=== PATIENT | female | born 1970 | race Caucasian/White ===

== ENCOUNTER 2021-01-08 00:25 | Emergency (ER) | payer OTHER, SELFPAY ==
[2021-01-08 00:28] VITALS: BP 154/99; PULSE 71; RESP 20; TEMP 36.3; O2SAT 99
--- NOTE | 2021-01-08 00:31 | ED.EXTPRO ---
HPI - Extremity Problem General Chief complaint: Extremity Problem,Nontraumatic Stated complaint: L arm pain Time Seen by Provider: 01/08/21 00:28 History of Present Illness HPI Narrative: Dull left forearm pain radiating to the left elbow for more than 1 week. Seen by PCP and told that it was likely muscle spasms. She was prescibed flexeril, which has not been helping. She came in tonight because she is unable to sleep due to the pain. Nothing makes it any better or worse. She does report tingling in the finger tips. No weakness. No rash. Related Data Home Medications Medication Instructions Recorded Confirmed cyclobenzaprine mg 01/08/21 Allergies Allergy/AdvReac Type Severity Reaction Status Date / Time No Known Allergies Allergy Verified 01/08/21 01:08 Review of Systems Review of Systems: All systems reviewed & are unremarkable except as noted in HPI and below Constitutional: Constitutional: Denies chills, Denies fever(s) and Denies weakness Cardiovascular: Cardiovascular: Denies chest pain Respiratory: Respiratory: Denies dyspnea Musculoskeletal: Musculoskeletal: Denies back pain [facility] Past Medical History Medical History (Updated 01/20/21 @ 17:39 by Jacob Gill MD) HTN (hypertension) Social History Social History (Updated 01/20/21 @ 17:39 by Jacob Gill MD) Smoking status: Never smoker Substance use: never Exam Const: General: healthy appearing, no acute distress and alert Orientation/consciousness: patient oriented x3 HENMT: Head: normal to inspection Resp: Effort & Inspection: normal respiratory effort Auscultation: clear to auscultation bilaterally Cardio: Rate: regular rate Rhythm: regular rhythm Skin: General skin exam: normal color Rashes: no rashes Wounds: no wounds Neuro: General: patient oriented x3, moves all extremities, no focal motor deficits and CN's II-XI intact bilaterally Speech: normal speech Gait exam (Neuro): Normal gait present Other: 5/5 strength throughout Extrem: Other: Pain with wrist movement against resistance. Otherwise normal exam Course Vital Signs Vital signs: Vital Signs Temperature 36.3 C L 01/08/21 00:28 Pulse Rate 71 01/08/21 00:28 Respiratory Rate 20 01/08/21 00:28 Blood Pressure 154/99 H 01/08/21 00:28 Pulse Oximetry 99 01/08/21 00:28 Temperature 36.3 C L 01/08/21 00:28 Pulse Rate 71 01/08/21 00:28 Respiratory Rate 20 01/08/21 00:28 Blood Pressure 154/99 H 01/08/21 00:28 Pulse Oximetry 99 01/08/21 00:28 MDM - Extremity (Nontraumatic) MDM Narrative Medical decision making narrative: Could be tendinitis, neuropathy, muscle strain. Shingles would have been a possibility but there should be a rash by now. Medical Records Attestation: I reviewed the patient's medical records. Discharge Plan Discharge Clinical Impression: Left forearm pain Patient Disposition: Home, Self-Care Condition: Stable Instructions: Arm Pain (ED) Prescriptions: New methylprednisolone [Medrol (Giles)] 4 mg tablets,dose pack See Rx Instructions .ROUTE .COMPLEX Qty: 21 RF: 0 No Action cyclobenzaprine 5 mg tablet RF: 0 Follow-up/Referrals: [facility], [Primary Care Provider] -
[2021-01-08] MEDS: KETOROLAC (*BKC) 60 MG/2 ML VIAL IM (01:07)
[2021-01-08] MEDS: DEXAMETHASONE SOD PHOS INJ 4 MG/ML VIAL 10 MG IM (01:07)
== END 2021-01-08 02:20 | disposition home or self-care (01) ==
PROVIDERS: Emergency Provider Emergency Medicine
DX: M79.632 Pain in left forearm (principal); I10 Essential (primary) hypertension
CPT/HCPCS: 96372; 99284; J1100; J1885

== ENCOUNTER 2021-03-20 07:31 | Emergency (ER) | payer OTHER, SELFPAY ==
--- NOTE | ~2021-03-20 | XR_ITS ---
EXAMINATION: XR hand LT min 3V EXAM DATE: 03/20/2021 08:24 INDICATION: pain/swelling chronic for one month with acute onset. TECHNIQUE: Left hand frontal, lateral and oblique projections obtained and reviewed. There is no donell or study for comparison. FINDINGS: Left metacarpal bones are unremarkable. There are no bony erosions identified. There are no acute fractures or dislocations identified. There is no subcutaneous gas. The soft tissue is un remarkable. There are no radiopaque foreign bodies. IMPRESSION: No acute osseous findings. Reviewed, dictated and finalized at location A. IMPRESSION: No acute osseous findings.
[2021-03-20 07:32] VITALS: BP 143/93; PULSE 90; RESP 20; TEMP 36.3; O2SAT 100
--- NOTE | 2021-03-20 08:17 | ED.GENADULT ---
HPI - General Adult General Chief complaint: Extremity Injury, Upper Stated complaint: l arm pain Time Seen by Provider: 03/20/21 07:46 History of Present Illness HPI narrative: Patient is a 50-year-old female who presents ER with left arm pain. Patient reports she has history of cervical disc issues that she recently completed physical therapy for. They typically cause her to have muscle spasms and radicular pain down her left arm. Patient was feeling better yesterday and opted to perform some gardening. Today when she woke up she was having recurrence of her pain. A lot of her pain is in her hands and forearm. She has difficulty extending her fingers out due to pain. She also has pain and tightness and the trapezius muscle on the left side. She took 600 mg of Motrin this morning without relief. She reports typically she has been on steroids and muscle relaxers for this in the past. No chest pain or chest pressure. Patient reports some mild swelling to her left hand that she reports is atypical. She also reports that she has not been diagnosed with any inflammatory arthritis such as rheumatoid arthritis or psoriatic arthritis. Patient has some paresthesia/tingling in her hands. Related Data Allergies Allergy/AdvReac Type Severity Reaction Status Date / Time No Known Allergies Allergy Verified 03/20/21 07:39 Review of Systems Constitutional: Constitutional: Denies chills, Denies fever(s) and Denies weakness Cardiovascular: Cardiovascular: Denies chest pain and Denies radiating jaw, neck or arm pain Respiratory: Respiratory: Denies cough and Denies dyspnea Musculoskeletal: Musculoskeletal: Reports arthralgias (Fingers left hand), Reports joint swelling (Fingers left hand) and Reports muscle cramps Neurologic: Denies focal weakness, Denies numbness and Reports paresthesias PMFSH Past Medical History Medical History (Updated 03/20/21 @ 09:31 by Sumanth Whitehead MD) HTN (hypertension) Surgical History Surgical History (Updated 03/20/21 @ 08:20 by Sumanth Whitehead MD) History of section Social History Social History (Updated 01/20/21 @ 17:39 by Jacob Gill MD) Smoking status: Never smoker Substance use: never Gender identity (if verbalized by the patient): Female Exam Narrative: Exam Narrative: GENERAL: Well-appearing, well-nourished, and in no acute distress. HEAD: Normocephalic, atraumatic. NECK: Supple. Tender palpation with spasm over left trapezius musculature. CHEST: Clear to auscultation. No respiratory distress. HEART: Regular rate and rhythm. Normal peripheral pulses. EXTREMITIES: Normal range of motion of the shoulder/elbow/wrist and the left upper extremity. Normal flexion of the fingers but pain with extension the fingers. Digits are edematous but not erythematous. Negative carpal tunnel compression test. No reproducible tenderness within the forearm. SKIN: Warm, dry, no rash. NEURO: No focal deficits. Alert and oriented x3. Course Course Emergency Course: Pain and tingling improved with Toradol and Valium. Discharge home with Medrol Dosepak Flexeril which is helped her in the past. Vital Signs Vital signs: Vital Signs Temperature 97.4 F L 03/20/21 07:32 Pulse Rate 90 03/20/21 07:32 Respiratory Rate 20 03/20/21 07:32 Blood Pressure 143/93 H 03/20/21 07:32 Pulse Oximetry 100 03/20/21 07:32 Temperature 97.4 F L 03/20/21 07:32 Pulse Rate 90 03/20/21 07:32 Respiratory Rate 20 03/20/21 07:32 Blood Pressure 143/93 H 03/20/21 07:32 Pulse Oximetry 100 03/20/21 07:32 Medical Decision Making Vital Signs Vital Signs: Vital Signs Temperature 97.4 F L 03/20/21 07:32 Pulse Rate 90 03/20/21 07:32 Respiratory Rate 20 03/20/21 07:32 Blood Pressure 143/93 H 03/20/21 07:32 Pulse Oximetry 100 03/20/21 07:32 Temperature 97.4 F L 03/20/21 07:32 Pulse Rate 90 03/20/21 07:32 Respiratory Rate 20 03/20/21 07:32
[2021-03-20] MEDS: diazePAM (*CRX) 5 MG TABLET 2.5 MG PO (08:57)
[2021-03-20] MEDS: KETOROLAC (*BKC) 60 MG/2 ML VIAL IM (08:58)
[2021-03-20 09:28] VITALS: TEMP 36.3
[2021-03-20 09:38] VITALS: BP 136/84; PULSE 84; RESP 18; O2SAT 98
== END 2021-03-20 09:39 | disposition home or self-care (01) ==
PROVIDERS: Emergency Provider Emergency Medicine
DX: M62.838 Other muscle spasm (principal); M54.12 Radiculopathy, cervical region; I10 Essential (primary) hypertension
CPT/HCPCS: 73130; 96372; 99283; A9270; J1885

== ENCOUNTER 2021-10-06 00:39 | Emergency (ER) | payer OTHER, SELFPAY ==
[2021-10-06 00:45] VITALS: BP 160/110; PULSE 72; RESP 20; TEMP 36.3; O2SAT 100
[2021-10-06 01:32] VITALS: BP 156/92; PULSE 64; RESP 22; O2SAT 100
[2021-10-06] MEDS: KETOROLAC (*BKC) 60 MG/2 ML VIAL IM (02:44)
[2021-10-06 02:48] VITALS: BP 144/93; PULSE 63; RESP 20; O2SAT 100
[2021-10-06] MEDS: GABAPENTIN 300 MG CAPSULE 600 MG PO (02:57)
--- NOTE | 2021-10-06 03:05 | ED.EXTPRO ---
HPI - Extremity Problem General Chief complaint: Extremity Problem,Nontraumatic Stated complaint: nerve pain lt arm, no chest pain Time Seen by Provider: 10/06/21 01:26 History of Present Illness HPI Narrative: Patient is a 51-year-old female who presents to the ER with burning pain in her left arm. Reports this is happened to her recurrently. She has an EMG ordered but she has not been able to find a place to perform it. She could either have carpal tunnel syndrome or pinched nerve in her neck. No new injury or repetitive hand motions over the last few days. She has had successful treatment with gabapentin in the past. She is taking Motrin for discomfort today but has not worked. Symptoms seem worse at night. No fevers or chills or sweats. Related Data Allergies Allergy/AdvReac Type Severity Reaction Status Date / Time No Known Allergies Allergy Verified 03/20/21 07:39 Review of Systems Review of Systems: All systems reviewed & are unremarkable except as noted in HPI and below Constitutional: Constitutional: Denies chills and Denies fever(s) Musculoskeletal: Musculoskeletal: Denies back pain, Denies arthralgias, Denies joint swelling and Denies muscle cramps Integumentary/Breasts: Skin/Breast: Denies pruritus, Denies erythema and Denies rash Neurologic: Denies headache(s) and Denies numbness Comments: burning pain left arm PMFSH Past Medical History Medical History (Updated 10/06/21 @ 03:12 by Sumanth Whitehead MD) HTN (hypertension) Surgical History Surgical History (Updated 03/20/21 @ 08:20 by Sumanth Whitehead MD) History of section Social History Social History (Updated 01/20/21 @ 17:39 by Jacob Gill MD) Smoking status: Never smoker Substance use: never Gender identity (if verbalized by the patient): Female Exam Narrative: GENERAL: Well-appearing, well-nourished, and in no acute distress. HEAD: Normocephalic, atraumatic. CHEST: Clear to auscultation. No respiratory distress. HEART: Regular rate and rhythm. Normal peripheral pulses. EXTREMITIES: Normal range of motion. No edema. Pain with compression of the left carpal tunnel. SKIN: Warm, dry, no rash. NEURO: No focal deficits. Alert and oriented x3. PSYCH: Normal mood and affect. Course Course Emergency Course: Gabapentin and Toradol here. Discharge home with some gabapentin she can continue to take ibuprofen. Vital Signs Vital signs: Vital Signs Temperature 97.4 F L 10/06/21 00:45 Pulse Rate 72 10/06/21 00:45 Respiratory Rate 20 10/06/21 00:45 Blood Pressure 160/110 H 10/06/21 00:45 Pulse Oximetry 100 10/06/21 00:45 Temperature 97.4 F L 10/06/21 00:45 Pulse Rate 63 10/06/21 02:48 Respiratory Rate 20 10/06/21 02:48 Blood Pressure 144/93 H 10/06/21 02:48 Pulse Oximetry 100 10/06/21 02:48 Discharge Plan Discharge Clinical Impression: Radicular pain in left arm Patient Disposition: Home, Self-Care Condition: Stable Instructions: Cervical Radiculopathy (ED) Additional Instructions: Return the ER if you have fever over 100.4 ?F, you have new weakness in your arm, you have worsening pain, you have additional concerns. Take ibuprofen 800mg every eight hours in addition to taking your gabapentin. Prescriptions: New gabapentin 600 mg tablet 600 mg PO HS Qty: 14 RF: 0 No Action methylprednisolone [Medrol (Giles)] 4 mg tablets,dose pack See Rx Instructions .ROUTE .COMPLEX Qty: 21 RF: 0 cyclobenzaprine 10 mg tablet 10 mg PO TID PRN (Reason: muscle spasm) Qty: 20 RF: 0 Follow-up/Referrals: [facility], [Primary Care Provider] - 1 Week
[2021-10-06 03:21] VITALS: BP 144/93; PULSE 64; RESP 15; O2SAT 99
== END 2021-10-06 03:23 | disposition home or self-care (01) ==
PROVIDERS: Emergency Provider Emergency Medicine
DX: M54.10 Radiculopathy, site unspecified (principal); I10 Essential (primary) hypertension
CPT/HCPCS: 96372; 99283; A9270; J1885

== ENCOUNTER 2021-10-08 23:07 | Emergency (ER) | payer OTHER, SELFPAY ==
[2021-10-08 23:17] VITALS: BP 157/96; PULSE 81; RESP 24; TEMP 36.3; O2SAT 100
--- NOTE | 2021-10-08 23:51 | PC.NURSE ---
Pt ambulated up to intake desk and states The pain in my arm has subsided, and it looks like its gonna be forever. So I am going to go ahead and go home. Pt ambulated out in no distress w/ steady gait.
== END 2021-10-09 00:04 | disposition left against medical advice (07) ==
DX: Z53.21 Procedure and treatment not carried out due to patient leaving prior to being seen by health care provider (principal)
CPT/HCPCS: 99199

== ENCOUNTER 2021-10-09 22:40 | Emergency (ER) | payer OTHER, SELFPAY ==
[2021-10-09 22:51] VITALS: BP 153/87; PULSE 67; RESP 18; TEMP 35.9; O2SAT 100
--- NOTE | 2021-10-10 00:37 | ED.EXTPRO ---
HPI - Extremity Problem General Chief complaint: Extremity Problem,Nontraumatic Stated complaint: Nerve Pain L Hand x 1 week Time Seen by Provider: 10/09/21 23:52 Source: patient, RN notes reviewed and old records reviewed Limitations: no limitations History of Present Illness HPI Narrative: 51-year-old female presented to emergency department for evaluation of neuropathic pain. Patient states that she is having nerve pain of her left hand. Patient has had this happen multiple times before. Patient did have similar symptoms over the summer during which she was worked up by her primary care physician. Patient has been taking gabapentin at that time and symptoms did resolve. Few weeks ago patient had symptoms return. Patient was evaluated in the emergency department and was started on gabapentin at that time. Patient has been taking gabapentin as directed and states that she has not had significant improvement in her pain control. Patient has been taking the gabapentin and Motrin. Patient denies any falls or injuries. Patient states the pain that she is experiencing is the pain she was experiencing over the summer. Patient does have follow-up scheduled with her primary care physician on Sunday. Patient is also in process of scheduling an EMG. They are working her up to determine if this is a pinched nerve in her neck versus carpal tunnel. Patient presents to the emergency department tonight seeking pain control. Related Data Home Medications Medication Instructions Recorded Confirmed hydrochlorothiazide 10/09/21 lisinopril 10/09/21 paroxetine HCl mg PO 10/09/21 Allergies Allergy/AdvReac Type Severity Reaction Status Date / Time No Known Allergies Allergy Verified 10/10/21 00:39 Review of Systems Review of Systems: All systems reviewed & are unremarkable except as noted in HPI and below Constitutional: Constitutional: Reports no additional constitutional complaints Eyes: Eyes: Reports no additional eye complaints ENT: Reports system reviewed and no additional complaints, except as documented Cardiovascular: Cardiovascular: Reports no additional cardiovascular complaints Respiratory: Respiratory: Reports no additional respiratory complaints Gastrointestinal: Gastrointestinal: Reports no additional gastrointestinal complaints Musculoskeletal: Musculoskeletal: Reports no additional musculoskeletal complaints Integumentary/Breasts: Skin/Breast: Reports system reviewed and no additional complaints, except as docu Neurologic: Reports as per HPI, Denies dizziness, Denies syncope, Denies focal weakness and Denies numbness Psychiatric: Psychiatric: Reports no additional psychiatric complaints Endocrine: Endocrine: Reports no additional endocrine complaints Hematologic/Lymphatic: Hematologic/Lymphatic: Reports no additional hematologic/lymphatic complaints Allergic/Immunologic: Allergic/Immunologic: Reports no additional allergic/immunologic complaints [facility] Past Medical History Medical History (Updated 10/11/21 @ 00:00 by Flores Black) HTN (hypertension) Surgical History Surgical History (Updated 03/20/21 @ 08:20 by Sumanth Whitehead MD) History of section Social History Social History (Updated 01/20/21 @ 17:39 by Jacob Gill MD) Smoking status: Never smoker Substance use: never Gender identity (if verbalized by the patient): Female Exam Const: General: healthy appearing and alert Nutritional Appearance: well nourished Orientation/consciousness: patient oriented x3 Limitations: altered mental status HENMT: Head: normal to inspection Eyes: Pupils: Equal, round and reactive pupils present Neck: Neck: normal visual inspection Chest: Chest palpation & inspection: normal inspection of the chest and no tenderness Resp: Effort & Inspection: normal respiratory effort Auscultation: clear to auscultation bilaterally Cardio: Rate: regular rate Rhythm: r
[2021-10-10] MEDS: HYDROcodone/acetaminophen (*CRX) 5-325 MG TABLET 1 TAB PO (00:53)
[2021-10-10] MEDS: KETOROLAC 30 MG/ML VIAL (*BKC) IM (00:53)
== END 2021-10-10 01:10 | disposition home or self-care (01) ==
PROVIDERS: Emergency Provider Emergency Medicine
DX: M79.602 Pain in left arm (principal); I10 Essential (primary) hypertension
CPT/HCPCS: 96372; 99283; A9270; J1885

== ENCOUNTER 2022-07-06 14:39 | Emergency (ER) | payer OTHER, SELFPAY ==
--- NOTE | ~2022-07-06 | XR_ITS ---
EXAMINATION: XR chest 2V 07/06/2022 15:40 INDICATION: Left-sided chest pain PROCEDURE: 2 view chest COMPARISON: 02/02/2012 FINDINGS: The lungs are clear. The cardiomediastinal silhouette is within normal limits. There are no pleural effusions. There is no pneumothorax suspected. IMPRESSION: 1: NO ACUTE CARDIOPULMONARY DISEASE. Reviewed, dictated and finalized at location B.
--- NOTE | 2022-07-06 14:41 | ECG_ITS ---
Measurements Intervals [place] Rate: 68 P: 54 WI: 135 QRS: 29 QRSD: 93 T: 7 QT: 377 QTc: 404 Interpretive Statements SINUS RHYTHM POSSIBLE LEFT ATRIAL ENLARGEMENT BASELINE ARTIFACT- I, II, III BORDERLINE ECG NO PREVIOUS ECG AVAILABLE FOR COMPARISON Electronically Signed On 07-06-2022 14:49:34 CDT by Costa Mcdaniel D.O.
[2022-07-06 14:50] VITALS: BP 151/87; PULSE 76; RESP 20; TEMP 36.7; O2SAT 100
[2022-07-06 14:59] LABS: Basophils Absolute Auto 0.1 K/mm3 (0.0-0.1); Eosinophils Absolute Auto 0.1 K/mm3 (0-0.3); Eosinophils Percent Auto 1.8 % (0-4.4); Hematocrit 42.9 % (37.0-47.0); Immature Granulocyte Absolute 0.01 K/mm3 (0.00-0.031); Immature Granulocyte Percent A 0.2 % (0-0.5); Lymphocytes Absolute Auto 1.72 K/mm3 (0.9-3.2); Lymphocytes Percent Auto 33.7 % (18.3-44.2); Mean Corpuscular HGB Conc 32.6 g/dl (32-36); Mean Corpuscular Hemoglobin 28.5 pg (26-34); Mean Corpuscular Volume 87.4 fl (80-100); Mean Platelet Volume 10.5 fl (7.4-10.4); Monocytes Absolute Auto 0.5 K/mm3 (0.1-0.6); Monocytes Percent Auto 9.6 % (2.6-8.5); Neutrophils Absolute Auto 2.8 K/mm3 (1.3-6.7); Neutrophils Percent Auto 53.7 % (45.5-73.1); Platelet Count Result 235 k/mm3 (150-375); Red Blood Count 4.91 M/mm3 (4.2-5.4); Red Cell Distribution Width 13.1 % (11.5-14.5); White Blood Count 5.1 K/mm3 (4.5-10.0)
[2022-07-06 15:10] LABS: Prothrombin Time 12.3 Seconds (11.1-14.7)
[2022-07-06 15:11] LABS: Partial Thromboplastin Time 24.6 SECONDS (22.3-36.8)
[2022-07-06 15:14] LABS: Alanine Aminotransferase 22 U/L (6-35); Albumin Level 4.4 g/dL (3.5-5.1); Alkaline Phosphatase 77 U/L (38-126); Anion Gap 11 mmol/L (8-16); Aspartate Amino Transferase 26 U/L (14-36); Bilirubin,Total 0.3 mg/dL (0.2-1.3); Blood Urea Nitrogen 18 mg/dL (7-17); Calcium 8.8 mg/dL (8.4-10.2); Carbon Dioxide 30 mmol/L (22-30); Chloride 99 mmol/L (98-107); Estimated Glomerular Filt Rate > 60; Glucose 106 mg/dL (65-110); Lipase 86 U/L (23-300); Potassium 3.6 mmol/L (3.4-5.0); Sodium 140 mmol/L (137-145)
[2022-07-06 15:26] LABS: Troponin I < 0.012 ng/mL (0.000-0.034)
--- NOTE | 2022-07-06 16:48 | ED.CHESTPAIN ---
HPI - Chest Pain General Chief Complaint: Chest Pain Stated Complaint: HTN, CP Time Seen by Provider: 07/06/22 16:19 Source: patient and RN notes reviewed Mode of arrival: ambulatory Limitations: no limitations History of Present Illness HPI narrative: This is a 52 year old female with history of hypertension who presents for evaluation of left chest discomfort. She noticed left chest discomfort that she describes as dull ache around 2 pm. She was sitting at her test. She states she checked her BP and it was 150s/90s. She also reported having shortness of breath at time of pain. Her left chest discomfort has not resolved. She denies associated nausea, vomiting, dizziness or diaphoresis. She reported shortness of breath on ambulating to ER. She denies having exertional chest pain prior to today. She denies heart disease and family history of heart disease. Related Data Home Medications Medication Instructions Recorded Confirmed hydrochlorothiazide 12.5 mg tablet 10/09/21 05/29/22 lisinopril 20 mg tablet 10/09/21 05/29/22 paroxetine HCl 10 mg tablet mg PO 10/09/21 05/29/22 Allergies Allergy/AdvReac Type Severity Reaction Status Date / Time No Known Allergies Allergy Verified 05/29/22 12:43 Review of Systems Review of Systems: All systems reviewed & are unremarkable except as noted in HPI and below Constitutional: Constitutional: Denies chills and Denies fatigue ENT: Denies nasal congestion and Denies sore throat Cardiovascular: Cardiovascular: Reports chest pain, Denies radiating jaw, neck or arm pain and Denies slow heart rate Respiratory: Respiratory: Denies chest congestion, Denies cough and Reports dyspnea Gastrointestinal: Gastrointestinal: Denies abdominal pain, Denies nausea and Denies vomiting [facility] Past Medical History Medical History HTN (hypertension) Surgical History Surgical History History of section Family History Family History Other Asthma Hypertension Social History Social History Smoking status: Never smoker Alcohol intake: current Substance use: never Substance use type: does not use Gender identity (if verbalized by the patient): Female Exam Narrative: GENERAL: Well-appearing, well-nourished, and in no acute distress. HEAD: Normocephalic, atraumatic EYES: EOMI, conjunctiva clear without discharge THROAT:Mucous membranes moist, Oropharynx normal without erythema, exudate, peritonsillar swelling or fluctuance NECK: Supple, without lymphadenopathy or mass RESPIRATORY: No respiratory distress, Airway patent, Respirations non-labored, Clear to auscultation without rales, rhonchi or wheeze HEART: Regular rate and rhythm. No murmur heard. Normal peripheral pulses. ABDOMEN: Soft, nontender, nondistended, normal active bowel sounds. No masses. No rebound or guarding, No organomegaly. EXTREMITIES: No edema, normal strength with full range of motion. SKIN: Warm, dry, normal color without rash NEURO: Alert and oriented x3. CN 2-12 grossly intact. No focal deficits. PSYCH: Normal mood and affect. Const: Nutritional Appearance: well nourished Orientation/consciousness: patient oriented x3 Limitations: no limitations HENMT: Head: normal to inspection Course Reevaluation(s) Reevaluation #1: PAtient states she feels much better. BP is similar in both arms. 140s/90s . She states her bp was similar last week in PCP . I Discussed labs are unremarkable. She is low risk on heart score without chest pain so she is stable for follow up with PCP. Date: 07/06/22 Time: 18:43 Vital Signs Vital signs: Vital Signs Temperature 98.0 F 07/06/22 14:50 Pulse Rate 76 07/06/22 14:50 Respiratory Rate 20 07/06/22 14:
[2022-07-06 17:06] LABS: D Dimer 0.36 ug/mL (<0.48)
[2022-07-06 18:31] LABS: Troponin I < 0.012 ng/mL (0.000-0.034)
[2022-07-06 19:16] VITALS: BP 148/80; PULSE 66; RESP 16; O2SAT 100
== END 2022-07-06 19:16 | disposition home or self-care (01) ==
PROVIDERS: Emergency Medicine; Emergency Provider General Practice
DX: R07.89 Other chest pain (principal); I10 Essential (primary) hypertension; R94.31 Abnormal electrocardiogram [ECG] [EKG]
CPT/HCPCS: 36415; 71046; 80053; 83690; 84484; 85025; 85380; 85610; 85730; 93005; 99284

== ENCOUNTER 2022-07-10 12:22 | Outpatient (CLI) | payer OTHER, SELFPAY ==
--- NOTE | 2022-07-10 12:58 | ECG_ITS ---
Measurements Intervals [place] Rate: 65 P: 55 ND: 146 QRS: 38 QRSD: 94 T: 10 QT: 391 QTc: 407 Interpretive Statements SINUS RHYTHM POSSIBLE LEFT ATRIAL ENLARGEMENT BORDERLINE ECG COMPARED TO ECG 07/06/2022 14:48:39 NO SIGNIFICANT CHANGES Electronically Signed On 07-10-2022 15:14:00 CDT by Arash Doty M.D.
== END 2022-07-10 12:23 | disposition home or self-care (01) ==
PROVIDERS: Visit Provider Neurological Surgery
DX: Z01.818 Encounter for other preprocedural examination (principal); R94.31 Abnormal electrocardiogram [ECG] [EKG]
CPT/HCPCS: 93005

== ENCOUNTER 2022-08-15 01:02 | Day surgery (SDC) | payer OTHER, SELFPAY ==
[2022-08-03 14:36] VITALS: BMI 36.1
--- NOTE | 2022-08-03 14:55 | SUR.PREOP ---
Addendum entered by Andria Jimenez RN 08/10/22 14:15: PT TO ARRIVE AT 1200 ON 08/15/22 FOR SURGERY AT 1400. UP TO 20 OZ OF CLEAR LIQUIDS UNTIL 1100. Original Note: Report to the Outpatient Waiting Room, entrance under the green pavilion located off [facility], at time 0800 on date 08/10/2022. Planned Procedure Time: 1000. Time changes happen often and if your time is changed the preop area will call you the afternoon before. - You and your visitor will be asked to self-screen and do not enter if you have any COVID symptoms. - We encourage only one visitor and NO visitors under age 16 are allowed at this time. Your visitor will receive communication by the phone number that is given day of service. - The patient visitor is requested to social distance or may leave the building when not with patient due to restrictions. - A mask is required within the hospital. Patients may have clear liquids (water, carbonated beverages, clear teas, apple juice) until 3 hours prior to surgery with a maximum of 20 ounces- 0700. - No food from midnight until time of surgery - Infants may have breast milk until 4 hours before surgery, formula 6 hours prior to surgery. - Children will be allowed to drink immediately following surgery. If applicable, please bring a bottle or sippy cup to assist with drinking. Juice, water, soda, and popsicles are readily available. For infants on formula, please bring formula the day of surgery. Pacifiers are allowed. Take the following medications with a SIP of water the morning of surgery: N/A Medications to discontinue per physician Multivitamin Date to take last dose 08/07 Please no make-up, nail eritrean, hairspray, perfume, deodorant, or body powder the day of surgery. No jewelry (including any body piercings) or valuables the day of surgery, leave them at home. Please take a shower or bath the night before, or the morning of, surgery with an antibacterial soap. Wear comfortable, loose fitting clothing. Children are encouraged to wear pajamas. - Jewelry must be removed prior to entering the operating room. Rings and piercings that are not removed may be cut off. - The hospital will not accept responsibility for valuables. - Please leave all valuables, including medications, at home the day of surgery. If you are going home after surgery, a licensed hi low truck driver must drive you home. - NO public transportation without another adult. - We recommend that an adult stay with you for 24 hours following discharge. - We also recommend that you do not drive, make important decision, drink alcoholic beverages, or take any drugs that were not prescribed by your health care provider for at least 24 hours after your discharge time. For Pediatric surgeries, we recommend two adults accompany the child home. Follow any additional instructions given to you from your surgeon. If you or anyone in your household have experienced Covid symptoms in the past week, please notify your surgeon or the nurse liaison at the phone number below for possible testing. Telephone instructions given to ____patient- Nia and asked if any additional questions and then verbalized understanding. Patient advised to call surgeon office or pre surgery nurse liaison [phone] if any additional questions.
--- NOTE | 2022-08-10 14:14 | PC.NURSE ---
Pt states no changes in health history or medications since initial interview. New pre-op instructions reviewed with pt. Pt denies further questions at this time.
[2022-08-15] VITALS (8 sets, daily range): BP systolic 144–163; BP diastolic 71–107; PULSE 62–78; RESP 14–18; TEMP 36.2; O2SAT 95–100
--- NOTE | ~2022-08-15 | XR_ITS ---
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 TECHNIQUE: 2 fluoroscopic images of the cervical spine were obtained during cervical discectomy perfo rmed by the surgeon. I was not present in the operating room. Fluoroscopy exposure time was 8.4 secon ds. Air Kerma 2.3436 mGy. DAP 0.0465 mGym2. COMPARISON: None FINDINGS: Images document the lateral cervical spine prior to and following anterior cervical fusion with inter body device placement at C5-6. IMPRESSION: Fluoroscopic documentation of cervical discectomy. Please refer to the operative note for complete pr ocedural details . Reviewed, dictated and finalized at location K. DISPATCHER IMPRESSION: Fluoroscopic documentation of cervical discectomy. Please refer to the operativ e note for complete procedural details .
[2022-08-15] MEDS: LACTATED RINGERS 1,000 ML 30 ML IV CONT ×2 (12:11→16:40)
--- NOTE | 2022-08-15 14:35 | P.PNAN_ITS ---
Anes - Initial Pre Proc Eval Procedure: Operation Date: 08/15/22 14:00 Proposed Procedures p C 5-6 Anterior Cervical Discectomy and Fusion - Geoff Blackwell MD Date/Time: 08/15/22 14:35 Surgeon: Geoff Blackwell MD Pre Op Diagnosis: Cervical Spondylosis Patient Data Age: 52 Gender: F Height: 1.63 m Weight: 96.6 kg Last Vital Signs Temp 36.2 C L 08/15/22 11:51 Pulse 71 08/15/22 11:51 Resp 16 08/15/22 11:51 BP 163/107 H 08/15/22 11:51 Pulse Ox 100 08/15/22 11:51 O2 Del Method Room Air 08/15/22 11:51 Allergies Allergy/AdvReac Type Severity Reaction Status Date / Time No Known Allergies Allergy Verified 08/10/22 14:16 Home Medications Medication Instructions Recorded Confirmed Type hydrochlorothiazide 12.5 mg tablet See Rx Instructions .Route .COMPLEX 10/09/21 08/10/22 History paroxetine HCl 10 mg tablet See Rx Instructions .Route .COMPLEX 10/09/21 08/10/22 History losartan 50 mg tablet 50 mg PO HS 08/03/22 08/10/22 History multivitamin with minerals-folic 1 tablet PO DAILY 08/03/22 08/10/22 History acid 0.4 mg tablet Laboratory Tests 08/15/22 12:04 Blood Type O Positive Antibody Screen Negative Patient hx anesthesia problems: none Family hx anesthesia problems: none Results Review: All pre-operative results and documents have been reviewed as part of the pre- operative evaluation. [facility] Past Medical History Medical History (Updated 08/15/22 @ 14:35 by Alejandro Reddy MD) HTN (hypertension) Obesity Surgical History Surgical History History of section Family History Family History Other Asthma Hypertension Social History Social History Smoking status: Never smoker Alcohol intake: current Alcohol use details: 1 drink per month Substance use: never Substance use type: does not use Living arrangements: with family Gender identity (if verbalized by the patient): Female Spiritual care concerns: No Anes - Eval Final PreProcedure Day of Procedure 08/15/22 14:35 Patient weight: obese Heart: regular rate and rhythm Lungs: clear to auscultation Airway: Mallampati scale class II Neurological: alert and oriented Last oral intake: >/= 8 hours ASA classification: II Emergent: no Anesthetic plan: proceed Anesthesia type and monitoring: general ETT and standard monitoring Results Review: All pre-operative results and documents have been reviewed as part of the pre- operative evaluation. Informed Consent: The patient's anesthetic plan and its attendant risks and benefits were discussed with the patient/family/POA. Questions were solicited and answers provided to the satisfaction of the patient/family/POA.
--- NOTE | 2022-08-15 14:40 | PM.IMHP ---
H&P: HPI History of Present Illness Date/Time: 08/15/22 14:40 Chief Complaint: Neck and arm pain Narrative: Ms. Mccullough is a 52-year-old female with neck and arm pain related to disc herniation at C5-6 who presents for anterior cervical diskectomy and fusion. She has dermatomal numbness. She has no specific muscle group weakness. She is not having any bowel or bladder difficulty. She has not changed appreciably since we last saw her. Review of Systems Review of Systems: Patient denies shortness of breath, cough, fever, chills, nausea, vomiting, weight loss, weight gain, chest pain, dysuria. She has neck and arm pain as above. Review of systems otherwise negative on 12 systems except as noted elsewhere. [facility], [facility] Past Medical History Medical History HTN (hypertension) Obesity Surgical History Surgical History History of section Family History Family History Other Asthma Hypertension Social History Social History Smoking status: Never smoker Alcohol intake: current Alcohol use details: 1 drink per month Substance use: never Substance use type: does not use Living arrangements: with family Gender identity (if verbalized by the patient): Female Spiritual care concerns: No Meds Home Medications and Allergies Home Medications Medication Instructions Recorded Confirmed Type hydrochlorothiazide 12.5 mg tablet See Rx Instructions .Route .COMPLEX 10/09/21 08/10/22 History paroxetine HCl 10 mg tablet See Rx Instructions .Route .COMPLEX 10/09/21 08/10/22 History losartan 50 mg tablet 50 mg PO HS 08/03/22 08/10/22 History multivitamin with minerals-folic 1 tablet PO DAILY 08/03/22 08/10/22 History acid 0.4 mg tablet Allergies Allergy/AdvReac Type Severity Reaction Status Date / Time No Known Allergies Allergy Verified 08/10/22 14:16 Vital Signs Vital Signs - 24 hr 08/15/22 11:51 Temperature 97.1 F L Pulse Rate 71 Respiratory Rate 16 Blood Pressure 163/107 H Pulse Oximetry 100 Oxygen Delivery Room Air Exam Neuro: Other: Strength is 5/5 in all muscle groups of the bilateral upper extremities. Sensation was intact to light touch throughout the upper extremity. Clear to auscultation Regular rate and rhythm Assessment and Plan Assessment and plan (1) Cervical spondylosis: Code(s): M47.812 - Spondylosis without myelopathy or radiculopathy, cervical region Status: Acute Assessment and Plan: Ms. Mccullough is a 52-year-old female with neck and arm pain related to disc osteophyte complex and spondylosis causing neural foraminal stenosis and presents now for C5-6 anterior cervical diskectomy and fusion. I again described to her that operation, its risks, potential benefits, the operative and postoperative course in detail answered all her questions personally. She indicates understanding and elects to proceed with that operation.
--- NOTE | 2022-08-15 14:43 | WPDHPUPDATE1 ---
History and Physical Update Update Date/Time: 08/15/22 14:43 History and Physical has been reviewed, including an updated exam of the patient. There are NO changes in the patient's condition. Risks, benefits, and alternatives have been discussed and questions answered. Patient agrees to proceed with procedure.
[2022-08-15] MEDS: ceFAZolin 2 GM/D5W 50 ML 2 GM/50 ML BAG IVPB (15:04)
[2022-08-15] MEDS: VANCOMYCIN HCL 1,000 MG VIAL 1000 MG TOPICAL (15:59)
[2022-08-15] MEDS: BUPIVACAINE/EPINEPHRINE 0.25% 50 ML VIAL INFILTRATE (16:00)
--- NOTE | 2022-08-28 09:26 | W.PM.PROC2 ---
Procedure Note - Detailed Date of Procedure 08/28/22 Pre-op Diagnosis Cervical Spondylosis Post-op Diagnosis Same Procedure Performed C5-6 complete diskectomy and bilateral neural foraminotomy, interbody arthrodesis utilizing peek interbody device, I Factor and local autograft, C5-6 anterior cervical plating with locking plate and screws Surgeon Geoff Blackwell MD Anesthesia General Indications Nia is a 52-year-old female with neck and or pain related pathology causing stenosis in the foramina who presents for C5-6 anterior cervical diskectomy and fusion. Description of Procedure The patient was brought to the operating room in the supine position, was sedated, intubated and placed under general anesthesia routine fashion. The of operation right side of the neck was examined, marked for incision, prepped and draped routine sterile fashion. Incision was marked from the midline over to the medial aspect of the sternocleidomastoid muscle a curvilinear transverse fashion 3 fingerbreadths above the sternal notch. This area was injected with 0.5% lidocaine with [id number] epinephrine. Intravenous antibiotics given prior to incision. Incision was made with a 10 blade scalpel down to the platysma muscle. The skin was undermined and the platysma muscle was divided longitudinally with its fibers using Metzenbaum scissors. Plane was then dissected medial to the sternocleidomastoid muscle down to the anterior aspect of the spine using the finger and Metzenbaum scissors. Verifying x-rays obtained to verify the level operation. At the C5-6 level the longus coli muscle was dissected free the anterior aspect of the spine in a subperiosteal plane using Bovie cautery. Shadow line retractor system was placed. [place] pins were placed in the C5 and C6 and distraction placed over the interspace. The disc space was entered using a 15 blade scalpel cutting along the margin of the bone above and below. A curved curette and pituitary rongeur were used to remove as much cartilaginous endplate and disc material as possible down to the annulus and ligament posteriorly. Midas Oli drill was used to bur down the endplates to bleeding cortical flat surfaces was to begin a bony foraminotomy bilaterally. Under microscopy the annulus and ligament were interrupted using a 4-0 curved curette. A 2. Kerrison punch was used to remove annulus, ligament and posterior osteophyte until foraminotomy had been completed bilaterally. Lack of decompression was confirmed by placing a nerve hook out each foramen. The disc space was incised an appropriately sized peek interbody device was chosen and filled with a mixture of I Factor and local autograft bone. This was then placed into the disc space to a 2-3 mm countersink. [place] pins and distraction removed. Anterior cervical plate was chosen placed in position and secured using 414 x 4 mm anterior screws advanced into the locking mechanism of the plate to hand tightness. Locking mechanism was engaged with the screwdriver for that purpose. I verified x-rays obtained to verify good position of the instrumentation which was confirmed. Wound was then copiously irrigated with bacitracin irrigation all bleeding stopped with bipolar and Bovie cautery and Gelfoam thrombin powder. The wound was then closed in layered fashion with 3-0 Vicryl interrupted sutures in the platysma muscle and in the dermis. The skin was closed with a running 4-0 Monocryl subcuticular stitch and dressed with Dermabond. The patient was loud wake up in the operating room and was taken to the recovery room in stable condition. There were no immediate complications of this operation. All counts were reported correct at the end of the case. Blood loss was 25 cc. The patient was neurologically at her baseline postoperatively. Estimated Blood Loss 25 IV Fluids 1,000 Complications None Condition Stable Disposition PACU [facility] Billing Surgery - Charge Forward: Surgery
== END 2022-08-15 18:40 | disposition home or self-care (01) ==
PROVIDERS: Visit Provider Neurological Surgery
PROC: (CPT 63030; principal; 2022-08-15 14:00)
DX: M47.812 Spondylosis without myelopathy or radiculopathy, cervical region (principal); M50.222 Other cervical disc displacement at C5-C6 level; I10 Essential (primary) hypertension; E66.9 Obesity, unspecified; Z68.36 Body mass index [BMI] 36.0-36.9, adult
CPT/HCPCS: 22551; 22853; 20936; 36415; 86850; 86900; 86901; 99199; C1713; J0131; J0690; J1100; J1170; J2250; J2405; J2710; J3010; J3370; J7120

== ENCOUNTER 2022-09-20 08:29 | Outpatient (CLI) | payer OTHER, SELFPAY ==
--- NOTE | ~2022-09-20 | XR_ITS ---
Cervical Spine: AP and lateral views Clinical History: Postoperative Findings: There is anterior fusion hardware extending from C5 to C6 with associated disc fusion devic e at the C5-C6 disc space. There is minimal degenerative disc narrowing at C4-C5 and C6-C7. No fractu re or subluxation evident. Pre-vertebral soft tissues are unremarkable. Impression: Anterior fusion changes from C5 to C6, as detailed above. Minimal degenerative disc narrowing at C4-C5 and C6-C7. Reviewed, dictated and finalized at location [] O INSPECTOR Impression: Anterior fusion changes from C5 to C6, as detailed above. Minimal degenerative disc narrowing at C4-C5 and C6-C7.
== END 2022-09-20 08:30 | disposition home or self-care (01) ==
LOC: ANHIMG 08:29
PROVIDERS: Visit Provider Neurological Surgery
DX: Z09 Encounter for follow-up examination after completed treatment for conditions other than malignant neoplasm (principal); Z98.1 Arthrodesis status; M50.30 Other cervical disc degeneration, unspecified cervical region
CPT/HCPCS: 72040

== ENCOUNTER 2022-12-18 14:12 | Outpatient (CLI) | payer OTHER, SELFPAY ==
--- NOTE | ~2022-12-18 | XR_ITS ---
Cervical Spine: AP, lateral, open-mouth views Clinical History: Pain COMPARISON: 09/20/2022 Findings: No acute fracture or subluxation identified. Anterior fusion from C5 to C6 with interbody f usion is unchanged. Stable mild degenerative disc change at C4-C5 and C6-C7. Pre-vertebral soft tissu es are unremarkable. Impression: No acute abnormality. Anterior fusion from C5 to C6 is unchanged. Additional degenerative changes, as noted above, stable from prior exam. Reviewed, dictated and finalized at location . Impression: No acute abnormality. Anterior fusion from C5 to C6 is unchanged. Additional degenerative changes, as noted above, stable from prior exam.
== END 2022-12-18 14:13 | disposition home or self-care (01) ==
PROVIDERS: Visit Provider Nurse Practitioner Adult Health
DX: M47.812 Spondylosis without myelopathy or radiculopathy, cervical region (principal); Z98.1 Arthrodesis status
CPT/HCPCS: 72040

== ENCOUNTER 2023-08-03 16:20 | Outpatient (CLI) | payer OTHER, SELFPAY ==
--- NOTE | ~2023-08-03 | MR_ITS ---
EXAMINATION: MR knee LT wo con DATE: 08/03/2023 17:08 INDICATION: TEAR OF MENISCUS TECHNIQUE: Magnetic resonance imaging (MRI) of the left knee was performed without intravenous contra st. Sequences included axial PD-weighted FS FSE, coronal PD-weighted FSE and PD-weighted FS FSE, sagi ttal PD-weighted FSE, and sagittal T2-weighted FS FSE. COMPARISON: None. FINDINGS: Medial compartment: Moderate diffuse thinning of cartilage and joint space narrowing. Moderate osteophytosis. Apical blun ting of the posterior horn and body. Abnormal signal change in the meniscus with fraying of the apex of the body and posterior horn and articular surface of the posterior horn. Mild meniscal extrusion. Lateral compartment: Moderate diffuse cartilage thinning and joint space narrowing. Moderate osteophytosis. Meniscus intac t. Patellofemoral compartment: Moderate diffuse cartilage thinning. Mild osteophytosis. Retinacula intact. Ligaments and tendons: Moderate thickening and abnormal signal within the proximal aspect of the MCL. The ACL, PCL, and LCL are intact. Remaining flexor and extensor tendons are intact. Fluid: Small volume joint fluid. Moderate Cotto's cyst. Osseous/other: No suspicious focal or diffuse marrow signal. Longitudinally oriented abnormal signal within the musc le belly and tendinous junction of the popliteus. IMPRESSION: Apical tear of the posterior horn of the medial meniscus, with degenerative signal change, fraying, a nd mild medial extrusion. Partial MCL tear. Moderate tricompartmental osteoarthritis. Popliteus muscle strain. Moderate Cotto's cyst. Reviewed, dictated and finalized at location K. IMPRESSION: Apical tear of the posterior horn of the medial meniscus, with degenerative sig nal change, fraying, and mild medial extrusion. Partial MCL tear. Moderate tricompartmental osteoarthritis. Popliteus muscle strain. Moderate Cotto's cyst.
== END 2023-08-03 16:21 | disposition home or self-care (01) ==
DX: S83.242A Other tear of medial meniscus, current injury, left knee, initial encounter (principal); X58.XXXA Exposure to other specified factors, initial encounter; M17.12 Unilateral primary osteoarthritis, left knee; M71.22 Synovial cyst of popliteal space [Baker], left knee
CPT/HCPCS: 73721

== ENCOUNTER 2024-04-20 08:19 | Emergency (ER) | payer OTHER, SELFPAY ==
[2024-04-20 08:30] VITALS: BP 159/96; PULSE 73; RESP 16; TEMP 36.5; O2SAT 100
--- NOTE | 2024-04-20 08:37 | ED.URI ---
HPI - URI/Sore Throat General Chief Complaint: Upper Respiratory Infection Stated Complaint: SORE THROAT/SINUS CONGESTION Time Seen by Provider: 04/20/24 08:37 History of Present Illness HPI Narrative: Patient presents with 2 day history of sore throat. She denies any fever. She does report some postnasal drainage and nasal congestion. She denies excessive fatigue or chills. She is able to manage own secretions, but does state throat hurts worse with swallowing Related Data Home Medications Medication Instructions Recorded Confirmed hydrochlorothiazide 12.5 mg tablet See Rx Instructions .Route .COMPLEX 10/09/21 04/20/24 losartan 50 mg tablet 50 mg PO HS 08/03/22 04/20/24 calcium carb-ergocalciferol (vit tablet PO 04/20/24 D2) 600 mg calcium-200 unit tablet naproxen sodium 220 mg capsule mg 04/20/24 (Aleve) Allergies Allergy/AdvReac Type Severity Reaction Status Date / Time No Known Allergies Allergy Verified 12/21/22 15:35 Review of Systems Review of Systems: All systems reviewed & are unremarkable except as noted in HPI and below Constitutional: Constitutional: Reports no additional constitutional complaints ENT: Reports system reviewed and no additional complaints, except as documented, Reports nasal congestion, Reports nasal discharge, Reports post nasal drip, Reports sinus pain, Reports sinus pressure and Reports sore throat Cardiovascular: Cardiovascular: Reports no additional cardiovascular complaints Respiratory: Respiratory: Reports no additional respiratory complaints Gastrointestinal: Gastrointestinal: Reports no additional gastrointestinal complaints [facility] Past Medical History Medical History HTN (hypertension) Obesity Surgical History Surgical History History of cervical spinal surgery (08/28/22) History of section Family History Family History Other Asthma Hypertension Social History Social History Smoking status: Never smoker Alcohol intake: current Alcohol use details: 1 drink per month Substance use: never Substance use type: does not use Living arrangements: with family Gender identity (if verbalized by the patient): Female Spiritual care concerns: No Exam Const: General: cooperative, no acute distress, alert and awake Orientation/consciousness: oriented to person, oriented to place and oriented to time HENMT: Head: normal to inspection Ears: TM's normal bilaterally Face and sinus: no tenderness Mouth: Yes moist mucous membranes Throat: posterior oropharynx abnormal erythema; no exudates and postnasal drainage Neck: Lymphatic: lymphadenopathy not noted Resp: Effort & Inspection: normal respiratory effort and able to speak in complete sentences Auscultation: clear to auscultation bilaterally, no crackles, no rales, no rhonchi and no wheezes Cardio: Palpation: normal PMI Rate: regular rate Rhythm: regular rhythm Heart sounds: S1 normal heart sound present and S2 normal heart sound present Neuro: General: oriented to person, oriented to place and oriented to time Cranial nerves: Yes CN's II-XII intact bilaterally Psych: Appearance: grossly normal Thought process: Normal thought process present Insight: Good insight present (Psych) Judgement: Good judgement present (Psych) Course Course Level of Care: Express Care Visit Vital Signs Vital signs: Vital Signs Temperature 97.7 F 04/20/24 08:30 Pulse Rate 73 04/20/24 08:30 Respiratory Rate 16 04/20/24 08:30 Blood Pressure 159/96 H 04/20/24 08:30 Pulse Oximetry 100 04/20/24 08:30 Temperature 97.7 F 04/20/24 08:30 Pulse Rate 73 04/20/24 08:30 Respiratory Rate 16 04/20/24 08:30 Blood Pressure 159/96 H 04/20/24 08:30 Pulse Oximet
[2024-04-20 09:04] LABS: EDSTREPNEGPOS1 Presumptive Negative
== END 2024-04-20 09:11 | disposition home or self-care (01) ==
PROVIDERS: Emergency Provider Nurse Practitioner Family
DX: J06.9 Acute upper respiratory infection, unspecified (principal); I10 Essential (primary) hypertension; Z20.822 Contact with and (suspected) exposure to COVID-19; E66.9 Obesity, unspecified; Z68.36 Body mass index [BMI] 36.0-36.9, adult
CPT/HCPCS: 87081; 87426; 87880; 99213; G0463

== ENCOUNTER 2025-06-01 09:56 | Outpatient (CLI) | payer OTHER, SELFPAY ==
--- NOTE | ~2025-06-01 | CT_ITS ---
EXAMINATION: CT cervical spine wo beth, 06/01/2025 10:05 CDT HISTORY: RT ARM WEAKNESS, NECK PAIN, NO TRAUMA, S/P FUSION 2021 COMPARISON: No comparisons available. Technique: Axial images were obtained of the spine per protocol. One or more of the following dose reduction techniques were used: automated exposure control, adjustment of the mA and/or kV according to patient size, use of iterative reconstruction technique. Unless otherwise stated, incidental findings do not require dedicated follow up imaging Findings: Grade 1 anterolisthesis C2 on C3 and C3 on C4, no fracture identified, anterior fixation of C5 and C6 with disc prostheses, the hardware is intact. Severe loss of disc height C4-5 and C6-7 with moderate canal and foraminal stenosis. Soft tissues unremarkable Impression: 1. Postsurgical and degenerative changes Reviewed, dictated and finalized at location A. Impression: 1. Postsurgical and degenerative changes
--- NOTE | ~2025-06-01 | XR_ITS ---
Clinical history:Spondylosis without myelopathy EXAM:Cervical spine x-ray to 3 views TECHNIQUE:6 images of the cervical spine were obtained Comparisons:12/18/2022 FINDINGS: Straightening of the normal cervical lordosis, unchanged. Anterior spinal fusion of C5 and C6 without radiographic evidence for loosening. Interbody fusion device at the C5-C6 level, unchanged. Moderate joint space narrowing at the C4- C5 and C6-C7 levels similar to the prior study. Mild to moderate degenerative change scattered throughout the cervical facet joints and uncovertebral joints similar to the prior study. Predental space is within normal limits. No compression fracture in the cervical spine. Lateral dental intervals are within normal limits. IMPRESSION: Grossly stable exam as compared to the study from 12/18/2022. If symptoms persist or worsen, consider an MRI of the cervical spine for further assessment. Reviewed, dictated and finalized at location Q. IMPRESSION: Grossly stable exam as compared to the study from 12/18/2022. If symptoms persist or worsen, consider an MRI of the cervical spine for furthe r assessment.
--- OUTSIDE RECORDS SUMMARY | 2025-06-01 10:44 | XMS_ITS | Continuity of Care Document ---
Author Name [facility] Organization [facility] Care Team Providers Care Home Restoration Service Supervisor Name Role Phone [facility] Unavailable Unavailable Problems Combined list of problems from Department of Defense and Veterans Affairs facilities. It does not include entries that were removed or entered in error. Problem Status Onset Date Problem Type Date of Resolution Comments Source Low libido Active 04/20/2025 Diagnosis 0055C-37 [facility]th [facility] Postmenopausal bleeding Active 04/20/2025 Diagnosis 0055C-[facility] Obesity Active 04/07/2025 Diagnosis 6130C-Af-C- [facility] Spinal stenosis in cervical region Active 03/20/2019 Condition 6130C-Af- C- [facility] Essential hypertension Active 01/14/2016 Condition 6130C-Af-C- [facility] Cervical radiculopathy Active Condition 6130C-Af-C- [facility] Depressive disorder Active Condition 61 30C-Af-C- [facility] Obesity Active Condition 6130C-Af-C- [facility] Patellofemoral syndrome of left knee Active Condition 6130C-Af-C- [facility] Plantar fasciitis Active Condition 6130 C-Af-C- [facility] Medications Combined list of outpatient medications from Department of Defense and Veterans Affairs facilities.Medications provided include 1) outpatient medications from the last 15 months, and 2) patient-reported medications. Medication Details Route Status Patient Instructions Prescription Expires Prescription Number Last Dispense Date Ordering Provider Order Date Order Qty Source acetaminoph en extended release 1,300 mg, Oral, every 8 hr, 0 total refill(s ), Maintena nce Oral (given by mouth) Ordered 2023 0055C-3 75th [facility] conjugated estrogens 0.3 mg oral tablet 1 tab(s), Oral, Daily, # 90 tab(s), 3 total refill(s ), Maintena nce, Pharmacy : [facility] Oral (given by mouth) Ordered 5 2024 90.0 0055C-3 [facility]th [facility] diclofenac 1% topical gel USE DOSING CARD TO APPLY 2 TO 4 GRAMS TO AFFECTED AREAS FOUR TIMES A DAY DIRECTED , # 100 g, 2 total refill(s ), Acute Complet ed 07/18/2023 3 2022 100.0 Ambulat ory Pharmac y fluticasone 50 mcg/inh nasal spray USE 2 SPRAYS IN EACH NOSTRIL DAILY, # 16 g, 1 total refill(s ), Acute Complet ed 05/16/2023 2 2022 16.0 Ambulat ory Pharmac y hydroCHLORO thiazide 25 mg oral tablet 1 tab(s), Oral, Daily, for blood pressure , # 90 tab(s), 3 total refill(s ), [facility], Pharmacy : [facility] Oral (given by mouth) Ordered 04/14/2025 5 2024 90.0 6130C-A f-C-375 Th [facility] hydroCHLORO thiazide 25 mg oral tablet 1 tab(s), Oral, Daily, for blood pressure , # 90 tab(s), 3 total refill(s ), [facility] Oral (given by mouth) Discont inued 11/11/2024 4 2024 90.0 6130C-A f-C-375 Th [facility] hydroCHLORO thiazide 25 mg oral tablet 1 tab(s), Oral, Daily, for blood pressure , X 30 days, # 30 tab(s), 0 total refill(s ), [facility], Pharmacy : [facility] Oral (given by mouth) Complet ed 12/15/2024 5 2024 30.0 0055C-3 75th [facility] hydroCHLORO thiazide 25 mg oral tablet 1 tab(s), Oral, Daily, for blood pressure , # 90 tab(s), 0 total refill(s ), [facility], Pharmacy : [facility] Oral (given by mouth) Discont inued 09/06/2023 3 2022 90.0 6130C-A f-C-375 Th [facility] hydroCHLORO thiazide 25 mg tablet See Instruct ions, # 90 EA, 1 total refill(s ), Acute Complet ed 08/21/2023 3 2022 90.0 Ambulat ory Pharmac y losartan 50 mg oral tablet 1 tab(s), Oral, Daily, for blood pressure , # 90 tab(s), 3 total refill(s ), [facility], Pharmacy : [facility] Oral (given by mouth) Ordered 5 2024 90.0 6130C-A f-C-375 Th [facility] losartan 50 mg oral tablet 2 Unknown, Unknown, 1 Refill(s ), 0 total refill(s ), Soft Stop Discont inued 09/06/20232022 6130C-A f-C-375 Th [facility] losartan 50 mg oral tablet 1 tab(s), Oral, Daily, for blood pressure , # 30 tab(s), 0 total refill(s ), Hard Stop, Pharmacy : [facility] Oral (given by mouth) Complet ed 12/15/2024 5 2024 30.0 6130C-A f-C-375 Th [facility] losartan 50 mg oral tablet 1 tab(s), Oral, Daily, for blood pressure , X 90 days, # 90 tab(s), 3 total refill(s ), Hard Stop, Pharmacy : [facility] Oral (given by mouth) Complet ed 12/04/2024 4 2024 90.0 6130C-A f-C-375 Th [facility] losartan 50 mg tablet See Instruct ions, # 90 EA, 2 total refill(s ), Acute Complet ed 08/07/2023 3 2022 90.0 Ambulat ory Pharmac y meloxicam 15 mg oral tablet 1 tab(s), Oral, Daily, # 90 tab(s), 0 total refill(s ), [facility], Pharmacy : [facility] Oral (given by mouth) Discont inued 12/06/2023 3 2023 90.0 6130C-A f-C-375 Th [facility] Geoff miscellaneo us medication 90 tab(s), 0 Refill(s ), 0 total refill(s ), Soft Stop Discont inued 11/19/20232023 [facility]55C[facility] multivitami n adult, oral tablet Oral, Daily, 0 total refill(s ), Maintena nce Oral (given by mouth) Complet ed 01/29/20252024 0055C-3 [facility] PARoxetine 10 mg oral tablet 1 tab(s), Oral, Daily, # 90 tab(s), 0 total refill(s ), Maintena nce, Pharmacy : [facility] Oral (given by mouth) Discont inued 09/06/2023 3 2022 90.0 6130C-A f-C[facility] progesteron e 200 mg oral capsule 1 cap(s), Oral, Daily, X 90 days, # 90 cap(s), 1 total refill(s ), Acute, Pharmacy : [facility] Oral (given by mouth) Ordered 08/30/2025 5 2024 90.0 0055C-3 75th [facility]z progesteron e 200 mg oral capsule 1 cap(s), Oral, Daily, take 1 tab by mouth daily for 12 days out of the month, X 12 days, # 48 cap(s), 3 total refill(s ), Acute, Pharmacy : [facility] Oral (given by mouth) Complet ed 03/01/2025 5 2024 48.0 0055A-3 75th [facility] Geoff progesteron e 200 mg oral capsule 1 cap(s), Oral, Daily, take 1 pill orally 12 days out of the month while on estrogen , X 12 days, # 12 cap(s), 3 total refill(s ), Acute, Pharmacy : [facility] Oral (given by mouth) Complet ed 12/29/2024 5 2024 12.0 0055C-3 75th [facility] tirzepatide (Zepbound) 2.5 mg/0.5 mL inj-pen [4pens/2mL] See Instruct ions, SubCutan eous, # 2 mL, 0 total refill(s ), Soft Stop Notes: refriger ate SubCut aneous (under the skin) Complet ed 04/07/2025 5 2024 2.0 Ambulat ory Pharmac y tirzepatide (Zepbound) Pen 2.5 mg/0.5 mL subcutaneou s solution 2.5 mg, SubCutan eous, every week, for weight manageme nt, # 2 mL, 0 total refill(s ), Maintena nce, pen needles not needed, integrat ed into device, Pharmacy : [facility] SubCut aneous (under the skin) Cancele d 12/22/20242024 2.0 6130C-A f-C-375 Th [facility] tirzepatide (Zepbound) Pen 2.5 mg/0.5 mL subcutaneou s solution 2.5 mg, SubCutan eous, every week, for weight manageme nt, # 2 mL, 0 total refill(s ), Hard Stop, pen needles not needed, integrat ed into device, Pharmacy : [facility] SubCut aneous (under the skin) Complet ed 01/14/2025 5 2024 2.0 6130C-A f-C-375 Th [facility] tirzepatide (Zepbound) Pen 5 mg/0.5 mL subcutaneou s solution 5 mg, SubCutan eous, every week, for weight manageme nt, # 6 mL, 0 total refill(s ), Maintena nce, 6 mL = 84 day supply, pen needles not needed, integrat ed into device, Pharmacy : [facility] SubCut aneous (under the skin) Discont inued 04/08/2025 5 2024 6.0 6130C-A f-C-375 [facility] tirzepatide (Zepbound) Pen 7.5 mg/0.5 mL subcutaneou s solution 7.5 mg, SubCutan eous, every week, for weight manageme nt, # 2 mL, 2 total refill(s ), Maintena nce, 2 mL = 28 day supply, pen needles not needed, integrat ed into device, Pharmacy : [facility] SubCut aneous (under the skin) Ordered 5 2024 2.0 6130C-A f-C-375 Th [facility] Vitamin D3 125 mcg (5000 intl units) oral tablet 1 tab(s), Oral, Daily, # 90 tab(s), 0 total refill(s ), Maintena nce Oral (given by mouth) Complet ed 04/07/20252024 90.0 0055C-3 75th [facility] Immunizations Combined list of available immunizations from the Department of Defense and Veterans Affairs facilities. Immunization Series Date Given Administered By Site Reaction Lot Number CVX Code Drug Director Revenue Status Comments Source zoster vaccine, inactivated 2020 zzLef t Arm [id number] GlaxoSmithKli ne complet ed zoster vaccine, inactivat ed 06/15/21 Given Ambulat ory Pharmac y zoster vaccine, inactivated 2020 zzLef t Arm [id number] GlaxoSmithKli ne complet ed zoster vaccine, inactivat ed 02/22/21 Given Ambulat ory Pharmac y SARS-CoV-2 (COVID-19) Ad26 vaccine, rec 2020 CAPTJULIEACRE ECH 212 complet ed Result Comment: Unit: Unknown Manufactu rer: [employer] (BERNARDO) 6130C-A f-C-375 [facility] tetanus, diphtheria, acellular pertu is 2017 Nathan ht Arm [id number] 115 GlaxoSmithKli ne complet ed tetanus, diphtheri a, acellular pertussis 01/31/18 Given Ambulat ory Pharmac y influenza, live, intranasal,qu adrivalent 2012 [id number] [employer] comple t ed influenza , live, intranasa l,quadriv alent 08/12/13 Given Ambulat ory Pharmac y influenza virus vaccine, live 2012 HERNESTO [id number] complet ed influenza virus vaccine, live 08/12/13 Recorded 6130C-A f-C-375 Th [facility] influenza, seasonal, injectable 2012 JOSHUAPCRUM 0 141 complet ed influenza , seasonal, injectabl e 07/08/13 Recorded 6130C-A f-C-375 Th [facility] Results Combined list of recent chemistry, hematology and other laboratory results from Department of Defense and Veterans Affairs, ranging from 15 months to all on record, depending upon the facility. Order Name Results Value Reference Range Date Interpretation Specimen Comments Source AP Specimen s AP Surgical Pathology Patient: Nia Mccullough Specimen #: [id number] Patholog ist: Chai Rios , Col, , [facility] Accessio n: 5 [facility] DEPARTME NT OF PATHOLOG Y [address] [place], [place] [address] Surgical Patholog y Report Patient: Nia Mccullough Specimen #: [id number] [facility] ID:: [id number] Encounte r #: [id number] Taken: 5 11:57 /Age: 8 0 (Age: 54) Received : 5 06:28 Physicia n(s): STARLA ARMENDARIZ N Reported : 03/09/2025 Specimen (s) Received Taken Rec endometr ium 5 11:57 5 06:28 Final Diagnosi s ENDOMETR IUM, BIOPSY: - WEAKLY PROLIFER ATIVE PATTERN ENDOMETR IUM WITH GLAND AND STROMAL BREAKDOW N. - NEGATIVE FOR HYPERPLA SUKHWINDER AND CARCINOM A. Elect ronicall y Signed awc/2024 Chai Rios , Lt Reyes, , [facility] Clinical Diagnosi s and History postmeno pausal bleeding Pre-Oper ative Diagnosi s postmeno pausal bleeding Post-Ope rative Diagnosi s same Gross Descript ion Specimen a received in formalin in a containe r labeled patient' s name Nia Mccullough with : 06[birth year]07[birth year]19 70 and designat ed EMB. Of scant fragment s of reddy-brow n tissue and mucus measurin g 1.0 x 0.7 x 0.1 cm in aggregat e; filtered , ET one block. [facility] CPT Codes: A; 65082 03/03- [facility] Chemistr y POC U HCG Negative (03/03/25 11:28 AM) Negative 03/03 N [facility] Chemistr y CRP 0.44 mg/dL 0.02 - 0.50 12/19 N - [facility] Immunolo gy/Serol ogy MARGIE Pattern Homogeno us 32 *ABN* (12/19/24 2:20 PM) 12/19 A Interpretiv e Data: Methodology : Indirect Immunofluor escence Assay (IIFA) [id number]-[place] [facility] EPILAB Immunolo gy/Serol ogy MARGIE Titer 1:160 titer 12/19 N Interpretiv e Data: Methodology : Indirect Immunofluor escence Assay (IIFA) 5600A-[place] [facility] EPILAB Immunolo gy/Serol ogy MARGIE Scrn Positive 1:160 6 (12/19/24 2:20 PM) Negative 12/19 N Interpretiv e Data: - MARGIE Screen Titer Result Further Testing - Negative <1:80 No MARGIE Negative N/A Yes: WALLY AG and dsDNA PANEL Cytoplasmic Stain Observed Positive 1:80 - 1:160 No Positive >/=1:320 Yes: WALLY AG and dsDNA PANEL WALLY Ag and dsDNA PANEL contains Centromere, dsDNA, Chasity-1, Ribosomal P, ELECTROMECHANIC/Sm, Ro-52, Scl-70, Sm, SS-A and SS-B. The performance characteris tics of this assay have not been evaluated for use in pediatric populations . Methodology : Indirect Immunofluor escence Assay (IIFA) 5600A-[facility] FSAM EPILAB Chemistr y Hemoglobin A1c 5.1 % 4.0 - 5.6 12/17 N Interpretiv e Data: Normal: 4.0 - 5.6% Increased Risk: 5.7 - 6.4% Diabetic Range: 6.5% For patients without diabetes, the normal range for the hemoglobin A1c test is between 4% and 5.6%. Hemoglobin A1c levels between 5.7% and 6.4% indicate increased risk of diabetes, and levels of 6.5% or higher indicate diabetes. Because studies have repeatedly shown that out-of-cont rol diabetes results in complicatio ns from the disease, the goal for people with diabetes is a hemoglobin A1c less than 7%. The higher the hemoglobin A1c, the higher the risks of developing complicatio ns related to diabetes. If confirmatio n is needed, consider recalling the patient and ordering Hemoglobin Electrophor esis. [facility] Chemistr y eAvg Glucose 100 mg/dL 12/17 [facility] Chemistr y Ur Microalbum in <5 mg/L 12/17 N Result Comment: Below detectable range of Analyzer Interpretiv e Data: To minimize intra-indiv idual variation, analysis of three random urine samples collected over the course of a week has also been recommended . [facility] Chemistr y Ur Microalb/U r Creat Ratio TNP 12/17 Result Comment: Result out of detectable range of analyzer, calculation can not be performed. [facility] Chemistr y Ur Creat 19 mg/dL 12/17 [facility] Immunolo gy/Serol ogy Herman Ext Nuc Ab Negative 31 (12/17/24 8:17 AM) 12/17 N Interpretiv e Data: Detection of these antibodies is used as an aid in the diagnosis of systemic lupus erythematos us (SLE), systemic sclerosis, polymyositi s/dermatomy ositis, mixed connective tissue disease and Sjogren's syndrome in conjunction with other laboratory and clinical findings. The performance characteris tics of this panel have not been evaluated for use in pediatric populations . Methodology : Enzyme-Link ed Immunosorba nt Assay (CARLOS ALBERTO) [facility] FSAM EPILAB Immunolo gy/Serol ogy SS-B Ab Negative 37 (12/17/24 8:17 AM) 12/17 N Interpretiv e Data: The performance characteris tics of this assay have not been evaluated for use in pediatric populations . METHODOLOGY : Enzyme-Link ed Immunosorbe nt Assay (CARLOS ALBERTO). [facility] FSAM EPILAB Immunolo gy/Serol ogy SCL-70 Ext Nuc Ab Negative 30 (12/17/24 8:17 AM) 12/17 N Interpretiv e Data: The performance characteris tics of this assay have not been evaluated for use in pediatric populations [address] [place] [address] FSAM EPILAB Immunolo gy/Serol ogy SS-A Ab Negative 34 (12/17/24 8:17 AM) 12/17 N Interpretiv e Data: The performance characteris tics of this assay have not been evaluated for use in pediatric populations [address] [place] [address] FSAM EPILAB Immunolo gy/Serol ogy SM/ELECTROMECHANIC Ab Negative 35 (12/17/24 8:17 AM) 12/17 N Interpretiv e Data: The performance characteris tics of this assay have not been evaluated for use in pediatric populations [facility] FSAM EPILAB Immunolo gy/Serol ogy Ribosomal P Ab Negative 36 (12/17/24 8:17 AM) 12/17 N Interpretiv e Data: The performance characteris tics of this assay have not been evaluated for use in pediatric populations [facility] FSAM EPILAB Immunolo gy/Serol ogy RO-52 Ab Negative (12/17/24 8:17 AM) 12/[address] [place] [address] FSAM EPILAB Immunolo gy/Serol ogy Centromere Ab Negative 29 (12/17/24 8:17 AM) 12/17 N Interpretiv e Data: The performance characteris tics of this assay have not been evaluated for use in pediatric populations [address] [place] [address] FSAM EPILAB Immunolo gy/Serol ogy CHASITY-1 Ext Nuc Ab Negative 38 (12/17/24 8:17 AM) 12/17 N Interpretiv e Data: The performance characteris tics of this assay have not been evaluated for use in pediatric populations [facility] FSAM EPILAB Immunolo gy/Serol ogy Anti-DSDNA Ab Negative 28 (12/17/24 8:17 AM) 12/17 N Interpretiv e Data: dsDNA antibodies of the IgG class are an accepted criterion ([place] [employer]) for the diagnosis of systemic lupus erythematos us (SLE). dsDNA antibodies are detectable in approximate ly 85% of patients with untreated SLE and are rarely detectable in other connective tissue diseases. The performance characteris tics of this assay have not been evaluated for use in pediatric populations . Methodology : Enzyme-link ed immunosorbe nt assay (CARLOS ALBERTO) [address] [place] [address] EPILAB Hematolo gy ESR Auto Plus 13 mm/h 0 - 30 12/17 N Interpretiv e Data: The clinical significanc e of an ESR result obtained from an abnormal sample, including but not limited to icteric, lipemic, cold agglutinins , anemic conditions, low hemoglobin concentrati ons, hemolysis, or any pathologica l condition that interferes or prevents a clear red cell to plasma interface is subject to a high degree of variability . 0055A-[facility] Immunolo gy/Serol ogy MARGIE Pattern Homogeno us 33 *ABN* (12/17/24 8:17 AM) 12/17 A Interpretiv e Data: Methodology : Indirect Immunofluor escence Assay (IIFA) [address] [place], [place] [address]AM EPILAB Immunolo gy/Serol ogy MARGIE Titer 1:320 titer 12/17 A Interpretiv e Data: Methodology : Indirect Immunofluor escence Assay (IIFA) [address] [place] [address] FSAM EPILAB Immunolo gy/Serol ogy MARGIE Scrn Positive 1:320 7 *ABN* (12/17/24 8:17 AM) 12/17 A Interpretiv e Data: - MARGIE Screen Titer Result Further Testing - Negative <1:80 No MARGIE Negative N/A Yes: WALLY AG and dsDNA PANEL Cytoplasmic Stain Observed Positive 1:80 - 1:160 No Positive >/=1:320 Yes: WALLY AG and dsDNA PANEL WALLY Ag and dsDNA PANEL contains Centromere, dsDNA, Chasity-1, Ribosomal P, ELECTROMECHANIC/Sm, Ro-52, Scl-70, Sm, SS-A and SS-B. The performance characteris tics of this assay have not been evaluated for use in pediatric populations . Methodology : Indirect Immunofluor escence Assay (IIFA) 5600A-[facility] FSAM EPILAB Immunolo gy/Serol ogy RF Qnt <13 IU/mL 12/17 N Result Comment: Below detectable range of Analyzer [facility] Immunolo gy/Serol ogy CCP Abs IgG/IgA LC 6 unit(s) 12/17 Result Comment: Negative <20 Weak positive 20 - 39 Moderate positive 40 - 59 Strong positive >59 Performed At: [address] [id number] Sai Garzon PhD Ph:[phone] [facility] Hematolo gy Maverick Absolute 0.5 x10^3/mc L 0.2 - 0.8103 11/17 N [facility] Hematolo gy Monocyte % Auto 12 % 1 - 12 11/17 N [facility] Hematolo gy Neutro Absolute 2.4 x10^3/mc L 2.0 - 7.0103 11/17 N [facility] Hematolo gy Neutrophil % Auto 56.1 % 46.0 - 77.0 11/17 N [facility] Hematolo gy Lymph Absolute 1.2 x10^3/mc L 1.2 - 4.0103 11/17 N [facility] Hematolo gy Basophil % Auto 0.9 % 0.0 - 2.5 11/17 N [facility] Hematolo gy Eos Absolute 0.1 x10^3/mc L 0.0 - 0.7103 11/17 N [facility] Hematolo gy Eosinophil % Auto 3 % 0 - 5 11/17 N [facility] Hematolo gy Lymphocyte % Auto 28.7 % 20.0 - 40.0 11/17 N [facility] Hematolo gy Baso Absolute 0.0 x10^3/mc L 0.0 - 0.1103 11/17 N [facility] Hematolo gy RDW 12.5 % 11.0 - 14.9 11/17 N [facility] Hematolo gy WBC 4.3 x10^3/mc L 4.0 - 11.0103 11/17 N [facility] Hematolo gy RBC 5.1 x10^6/mc L 3.6 - 5.0106 11/17 H [facility] Hematolo gy MCHC 33.3 g/dL 33.0 - 36.5 11/17 N [facility] Hematolo gy MCV 85 fL 80 - 97 11/17 N [facility] Hematolo gy MPV 10.6 fL 7.4 - 10.4 11/17 H [facility] Hematolo gy Platelets 261.0 x10^3/mc L 150.0 - 450.0103 11/17 N [facility] Hematolo gy Hemoglobin 14.5 g/dL 11.0 - 15.0 11/17 N [facility] Hematolo gy MCH 28 pg 28 - 33 11/17 N [facility] Hematolo gy Hematocrit 44 % 34 - 46 11/17 N [facility] Chemistr y TSH 1.740 mIU/L 0.270 - 4.200 11/17 N Interpretiv e Data: Recommend: TPO/Thyrope roxidase Antibody when TSH result is > 4.2 uIU/mL [facility] EPILAB Chemistr y Triglyceri micheal 68 mg/dL 7 - 149 11/17 N Interpretiv e Data: AGES 0-9: Desirable: < 75 mg/dL Borderline High: 75-99 mg/dL High: >/= 100 mg/dL AGES 10-19: Desirable: < 90 mg/dL Borderline High: 90-129 mg/dL High: >/= 130 mg/dL ADULTS: Desirable: < 150 mg/dL Borderline High: 150-199 mg/dL High: >/= 240 mg/dL Very High: >/= 500 mg/dL [facility] Chemistr y LDL/HDL 3 11/17 [facility] Chemistr y LDL 133 mg/dL 100 - 130 11/17 H Interpretiv e Data: AGES 0-19: Desirable: < 110 mg/dL Borderline High: 110-129 mg/dL High: >/= 130 mg/dL ADULTS: Desirable: <100 mg/dL Near/above optimal: 100-130 mg/dL Borderline High: 131-159 mg/dL High: 160-189 mg/dL Very High: 190 mg/dL [facility] Chemistr y HDL Cholestero l 52 mg/dL 40 - 59 11/17 N Interpretiv e Data: HDL (HIGH DENSITY LIPOPROTEIN ): ADULTS: Low: < 40 mg/dL High: >/= 60 mg/dL AGES 0 -19: Low: < 40 mg/dL Borderline Low: 40 - 45 mg/dL Acceptable: > 45 mg/dL [facility] Chemistr y Cholestero l Total 183 mg/dL 11/17 N Interpretiv e Data: According to the [place] [employer] : AGES 0-19: Desirable: < 170 mg/dL Borderline High: 170-199 mg/dL High Blood Cholesterol : >/= 200 mg/dL ADULTS: Desirable < 200 mg/dL Borderline High: 200-239 mg/dL High Blood Cholesterol : >/= 240 mg/dL [facility] Chemistr y Chol/HDL 4 mg/dL 11/17 [facility] Chemistr y eAvg Glucose 100 mg/dL 11/17 [facility] Chemistr y Hemoglobin A1c 5.1 % 4.0 - 5.6 11/17 N Interpretiv e Data: Normal: 4.0 - 5.6% Increased Risk: 5.7 - 6.4% Diabetic Range: 6.5% For patients without diabetes, the normal range for the hemoglobin A1c test is between 4% and 5.6%. Hemoglobin A1c levels between 5.7% and 6.4% indicate increased risk of diabetes, and levels of 6.5% or higher indicate diabetes. Because studies have repeatedly shown that out-of-cont rol diabetes results in complicatio ns from the disease, the goal for people with diabetes is a hemoglobin A1c less than 7%. The higher the hemoglobin A1c, the higher the risks of developing complicatio ns related to diabetes. If confirmatio n is needed, consider recalling the patient and ordering Hemoglobin Electrophor esis. [facility] Chemistr y Vitamin D 25 OH 58.7 ng/mL 30.0 - 100.0 11/17 N Interpretiv e Data: Classificat ion of Vitamin D Status: Deficient: <20 ng/mL Insufficien t: 20-29 ng/mL Sufficient: 30-100 ng/mL Possible Toxicity: >100 ng/mL This assay is for the quantitativ e determinati on of total 25 (OH) vitamin D. It is intended as an aid in the determinati on of vitamin D sufficiency . Results should always be interpreted in conjunction with the patient's medical history, clinical presentatio n, and other findings. Testing performed by [facility]. [facility] FS[facility] EPILAB Chemistr y Potassium Lvl 3.3 mmol/L 3.5 - 5.1 11/17 L 5A-375 [facility] Chemistr y Glucose Lvl 90 mg/dL 74 - 99 11/17 N -375 [facility] Chemistr y CO2 33 mmol/L 22 - 29 11/17 H 5A-375 [facility] Chemistr y Creatinine Level 0.70 mg/dL 0.57 - 1.11 11/17 N -375 [facility] Chemistr y Chloride 101 mmol/L 98 - 107 11/17 N 375 [facility] Chemistr y BUN 13 mg/dL 7 - 20 11/17 N [facility] Chemistr y Bilirubin Total 0.6 mg/dL 0.2 - 1.2 11/17 N 375 [facility] Chemistr y Calcium 9.7 mg/dL 8.4 - 10.2 11/17 N -375 [facility] Chemistr y BUN/Creat Ratio 19 mg/dL 12 - 20 11/17 N 5A-375 [facility] Chemistr y Protein Total 7.6 g/dL 6.4 - 8.3 11/17 N -375 [facility] Chemistr y AST 21 U/L 5 - 34 11/17 N 5A-375 [facility] Chemistr y Albumin 4.10 g/dL 3.50 - 5.20 11/17 N 005-375 [facility] Chemistr y AGAP 7.00 0.00 - 15.00 11/17 N 0055A-375 [facility] Chemistr y ALT 21 U/L 5 - 55 11/17 N 0055A-375 [facility] Chemistr y Alk Phos 86 U/L 40 - 150 11/17 N 0055A-375 [facility] Chemistr y Sodium 141 mmol/L 136 - 145 11/17 N 0055A-375 [facility] Chemistr y eGFR CKD EPI 103 mL/min/1 .73_m2 11/17 Interpretiv e Data: Estimated Glomerular Filtration Rate (eGFR) calculated using the 2020 Chronic Kidney Disease-Epi demiology (CKD-EPI) Collaborati on creatinine equation; units of measure are mL/min/1.73 m2. Results are only valid for adults (>=18 years) whose serum creatinine is in steady state. eGFR calculation s are not valid for patients with acute kidney injury and for patients on dialysis. Creatinine- based estimates of kidney function may also be inaccurate in patients with reduced creatinine generation due to decreased muscle mass (e.g., malnutritio n, severe hypoalbumin emia, sarcopenia, chronic neuromuscul ar disease, amputations , severe heart failure or liver disease) and in patients with increased creatinine generation due to increased muscle mass (e.g., muscle builders, anabolic steroids) or increased dietary intake. CKD is diagnosed based on abnormaliti es of kidney structure or function, present for >3 months, with implication s for health and disease. CKD is classified and staged based on cause, eGFR and albuminuria (quantified as urine albumin to creatinine ratio). An eGFR >60 mL/min/1.73 m2 in the absence of increased urine albumin excretion or structural abnormaliti es does not CKD. eGFR provides only an estimate of measured GFR within +/- 30% for most patients. As mentioned, nutritional status and muscle mass, among many factors, may lead to inaccuracy in the estimate. Consider ordering the creatinine- cystatin C panel if better accuracy is needed for clinical decision-lloyd garcia. eGFR (mL/min/1.7 3 m2) CKD stage Interpretat ion Normal 60-89 Mild decrease 45-59 Mild to moderate decrease 30-44 Moderate to severe decrease 15-29 Severe decrease <15 Kidney failure [facility] Chemistr y TSH 1.880 mIU/L 0.270 - 4.200 11/29 N Interpretiv e Data: Recommend: TPO/Thyrope roxidase Antibody when TSH result is > 4.2 uIU/mL [address] [place] [address] FSAM EPILAB Chemistr y LDL/HDL 3 11/295A-375 [facility] Chemistr y LDL 138 mg/dL 100 - 130 11/29 H Interpretiv e Data: AGES 0-19: Desirable: < 110 mg/dL Borderline High: 110-129 mg/dL High: >/= 130 mg/dL ADULTS: Desirable: <100 mg/dL Near/above optimal: 100-130 mg/dL Borderline High: 131-159 mg/dL High: 160-189 mg/dL Very High: 190 mg/dL [facility] Chemistr y HDL Cholestero l 53 mg/dL 40 - 59 11/29 N Interpretiv e Data: HDL (HIGH DENSITY LIPOPROTEIN ): ADULTS: Low: < 40 mg/dL High: >/= 60 mg/dL AGES 0 -19: Low: < 40 mg/dL Borderline Low: 40 - 45 mg/dL Acceptable: > 45 mg/dL [facility] Chemistr y Chol/HDL 4 mg/dL 11/29 [facility] Chemistr y Cholestero l Total 205 mg/dL 11/29 H Interpretiv e Data: According to the [place] [employer] : AGES 0-19: Desirable: < 170 mg/dL Borderline High: 170-199 mg/dL High Blood Cholesterol : >/= 200 mg/dL ADULTS: Desirable < 200 mg/dL Borderline High: 200-239 mg/dL High Blood Cholesterol : >/= 240 mg/dL [facility] Chemistr y Triglyceri micheal 155 mg/dL 7 - 149 11/29 H Interpretiv e Data: AGES 0-9: Desirable: < 75 mg/dL Borderline High: 75-99 mg/dL High: >/= 100 mg/dL AGES 10-19: Desirable: < 90 mg/dL Borderline High: 90-129 mg/dL High: >/= 130 mg/dL ADULTS: Desirable: < 150 mg/dL Borderline High: 150-199 mg/dL High: >/= 240 mg/dL Very High: >/= 500 mg/dL [facility] AP Specimen s HPV Genotype 16 Negative 26 (11/19/23 3:54 PM) 11/19 N Interpretiv e Data: HPV GENOTYPE 16 Negative: NEGATIVE for HPV DNA genotype 16 DNA. HPV GENOTYPE 16 Positive: POSITIVE for HPV genotype 16 DNA. The da HPV Test is a qualitative in vitro test for the detection Human Papillomavi coral in clinician-c ollected cervical and vaginal specimens. It detects the following high-risk HPV types 16, 18, 31, 33, 35, 39, 45, 51, 52, 56, 58, 66, and 68. Note: The modificatio n to specimen source of vaginal was developed and its performance characteris tics determined by [facility], [facility]. Vaginal source has not been cleared or approved by the U. S. Food and Drug Administrat Sova. This modified vaginal specimen HPV test is for clinical purposes. This laboratory is certified under the Clinical Laboratory Improvement Amendments of 1988 (CLIA-88) as qualified to perform high complexity clinical laboratory testing. Clinician collected PreservCyt ThinPrep vaginal specimen are an approved additional specimen source, based on an internal laboratory validation. Limitations : A negative result does NOT preclude the presence of HPV infection because results depend on adequate specimen collection, absence of inhibitors and sufficient DNA to be detected. Correlation with cytologic findings is recommended as applicable. Questions about process or methodology contact Molecular Department at [phone] or [phone]. Unknown Organizat ion AP Specimen s HPV Genotype 18 Negative 24 (11/19/23 3:54 PM) 11/19 N Interpretiv e Data: HPV GENOTYPE 18 Negative: NEGATIVE for HPV genotype 18 DNA. HPV GENOTYPE 18 Positive: POSITIVE for HPV genotype 18 DNA. The da HPV Test is a qualitative in vitro test for the detection Human Papillomavi coral in clinician-c ollected cervical and vaginal specimens. It detects the following high-risk HPV types 16, 18, 31, 33, 35, 39, 45, 51, 52, 56, 58, 66, and 68. Note: The modificatio n to specimen source of vaginal was developed and its performance characteris tics determined by [facility], [facility]. Vaginal source has not been cleared or approved by the U. S. Food and Drug Administrat Sova. This modified vaginal specimen HPV test is for clinical purposes. This laboratory is certified under the Clinical Laboratory Improvement Amendments of 1988 (CLIA-88) as qualified to perform high complexity clinical laboratory testing. Clinician collected PreservCyt ThinPrep vaginal specimen are an approved additional specimen source, based on an internal laboratory validation. Limitations : A negative result does NOT preclude the presence of HPV infection because results depend on adequate specimen collection, absence of inhibitors and sufficient DNA to be detected. Correlation with cytologic findings is recommended as applicable. Questions about process or methodology contact Molecular Department at or [phone]. Unknown Organizat ion AP Specimen s HPV Typing High Risk Negative 25 (11/19/23 3:54 PM) 11/19 N Interpretiv e Data: HPV Typing High Risk Negative: NEGATIVE for concurrentl y detecting the rest of the 12 high risk types HPV DNA (31,33,35,3 9,45,51,52, 56,58,59,66 and 68) without differentia tion. HPV Typing High Risk Positive: POSITIVE for concurrentl y detecting the rest of the 12 high risk types HPV DNA (31,33,35,3 9,45,51,52, 56,58,59,66 and 68) without differentia tion. The da HPV Test is a qualitative in vitro test for the detection Human Papillomavi coral in clinician-c ollected cervical and vaginal specimens. It detects the following high-risk HPV types 16, 18, 31, 33, 35, 39, 45, 51, 52, 56, 58, 66, and 68. Note: The modificatio n to specimen source of vaginal was developed and its performance characteris tics determined by [facility], [facility]. Vaginal source has not been cleared or approved by the U. S. Food and Drug Administrat Sova. This modified vaginal specimen HPV test is for clinical purposes. This laboratory is certified under the Clinical Laboratory Improvement Amendments of 1988 (CLIA-88) as qualified to perform high complexity clinical laboratory testing. Clinician collected PreservCyt ThinPrep vaginal specimen are an approved additional specimen source, based on an internal laboratory validation. Limitations : A negative result does NOT preclude the presence of HPV infection because results depend on adequate specimen collection, absence of inhibitors and sufficient DNA to be detected. Correlation with cytologic findings is recommended as applicable. Questions about process or methodology contact Molecular Department at or [phone]. Unknown Organizat ion AP Specimen s AP Cyto COLLEGE COUNSELOR Patient: Nia Mccullough Specimen #: [id number] Patholog ist: Accessio n: 4 [facility] DEPARTME NT OF PATHOLOG Y [address] [facility] [address] [place] [address] Cytology Gynecolo gic Report Patient: Nia Mccullough Specimen #: [id number] [facility] ID:: [id number] Encounte r #: [id number] Taken: 4 15:54 /Age: 8 0 (Age: 53) Received : 4 14:38 Physicia n(s:): ALISHA MANZANARESNER Reported : 4 Specimen (s) Received Taken Rec Thin Prep - Cervical w/o reflex HPV 4 15:54 4 14:38 Final Diagnosi s Thin Prep - Cervical w/o reflex HPV: Satisfac tory for evaluati on; endocerv ical componen t present. Negative for intraepi thelial lesion or malignan cy. Non-neop lastic findings : atrophic pattern. This Pap test was evaluate d with the assistan ce of the Thin Prep Test Imaging System. Due to cytologi c findings at the Customer Assistance Representative microsco pe or selectio n of the case for QC, comprehe nsive manual re-scree luis enrique by a cytotech nologist was required . Elect ronicall y Signed by Kris Malone Clinical Diagnosi s and History no hx abn; co test 5yrs if nl Prior History Signed Out Specimen # Interpre tation 08/13/20 19 [id number] Negative for Intraepi thlial Lesion or Malignan cy 01/06/20 14 [id number] NEGATIVE 11/28/19 14 [id number] UNSATISF ACTORY INTELLIGENCE OPERATIONS SPECIALIST 10/07/20 08 [id number] NEG FOR INTRAEPI /MALGN 03/14/20 07 [id number] NEGATIVE CPT Codes: A; 05701 The Pap test is a screenin g test for precurso rs of squamous cell carcinom a with an irreduci ble false negative rate of around 5%. It is not designed to detect glandula r lesions. A negative test does not ensure that no disease is present. 11/19 0055C-375 th [facility] Vital Signs Combined list of inpatient and outpatient Vital Signs from Department of Defense and Veterans Affairs, ranging from 12 months to all on record, depending upon the facility. Vital Sign Value Date Comments Source Blood Pressure Manual Automatic 11/11/2024 14:26:00 0055C-375th [facility] BP Site Left arm 11/11/2024 14:26:00 0055C -375th [facility] Peripheral Pulse Rate 84 bpm 11/11/2024 14:26:00 0055C-375[facility] Respiratory Rate 16 br/min 11/11/2024 14:26:00 0055C-375th [facility] Temperature Oral 36.9 Carli 11/11/2024 14:26:00 0055C-375[facility] Mean Arterial Pressure, Cuff (Calc) 108 mm[Hg] 11/11/2024 14:26:00 0055C-375th [facility] Systolic Blood Pressure 149 mm[Hg] 11/11/2024 14:26:00 0055C-375th [facility] Diastolic Blood Pressure 88 mm[Hg] 11/11/2024 14:26:00 0055C-375th [facility] Systolic Blood Pressure 133 mm[Hg] 11/19/2023 19:54:00 0055C-375[facility] Diastolic Blood Pressure 92 mm[Hg] 11/19/2023 19:54:00 0055C-375th [facility] BP Site Right arm 11/19/2023 19:54:00 0055C -375th [facility] Temperature Oral 36.8 Carli 11/19/2023 19:54:00 0055C-375[facility] Respiratory Rate 16 br/min 11/19/2023 19:54:00 0055C-375[facility] Peripheral Pulse Rate 86 bpm 11/19/2023 19:54:00 0055C-375th [facility] Mean Arterial Pressure, Cuff (Calc) 106 mm[Hg] 11/19/2023 19:54:00 0055C-375th [facility] Blood Pressure Manual Automatic 11/19/2023 19:54:00 0055C-375[facility] Blood Pressure Manual Automatic 07/18/2023 13:58:00 3822S-Zd-A-375[facility] Respiratory Rate 16 br/min 07/18/2023 13:58:00 9984K-Ks-X-375[facility] BP Site Left arm 07/18/2023 13:58:00 6130C -Af-C-375[facility] Temperature Oral 36.3 Carli 07/18/2023 13:58:00 6911N-Zv-R-375Th [facility] Blood Pressure Manual Automatic 02/03/2025 14:05:00 0055C-375th [facility] BP Site Left arm 02/03/2025 14:05:00 0055C -375th [facility] Temperature Oral 36.7 Carli 02/03/2025 14:05:00 0055C-375th [facility] Peripheral Pulse Rate 73 bpm 02/03/2025 14:05:00 0055C-375th [facility] Mean Arterial Pressure, Cuff (Calc) 98 mm[Hg] 02/03/2025 14:05:00 0055C-375th [facility] Systolic Blood Pressure 125 mm[Hg] 02/03/2025 14:05:00 0055C-375[facility] Diastolic Blood Pressure 85 mm[Hg] 02/03/2025 14:05:00 0055C-375[facility] Respiratory Rate 16 br/min 09/06/2023 21:30:00 3423U-Jn-Y-375Th [facility] Peripheral Pulse Rate 82 bpm 09/06/2023 21:30:00 9174R-Vo-X-375[facility] Mean Arterial Pressure, Cuff (Calc) 102 mm[Hg] 09/06/2023 21:30:00 6284L-Dp-Z-3 [facility] Blood Pressure Manual Automatic 09/06/2023 21:30:00 3343G-Io-F-375Th [facility] BP Site Left arm 09/06/2023 21:30:00 6130C -Af-C-375[facility] Systolic Blood Pressure 141 mm[Hg] 09/06/2023 21:30:00 6024V-Cj-B-375Th [facility] Diastolic Blood Pressure 82 mm[Hg] 09/06/2023 21:30:00 7921M-Ic-S-375Th [facility] Mean Arterial Pressure, Cuff (Calc) 92 mm[Hg] 04/20/2025 18:58:00 0055C-375th [facility] Peripheral Pulse Rate 73 bpm 04/20/2025 18:58:00 0055C-375th [facility] Systolic Blood Pressure 121 mm[Hg] 04/20/2025 18:58:00 0055C-375th [facility] Diastolic Blood Pressure 77 mm[Hg] 04/20/2025 18:58:00 0055C-375th [facility] Respiratory Rate 16 br/min 04/20/2025 18:58:00 0055C-375th [facility] Temperature Oral 36.7 Carli 04/20/2025 18:58:00 0055C-375[facility] Systolic Blood Pressure 126 mm[Hg] 03/03/2025 16:35:00 0055C-375th [facility] Diastolic Blood Pressure 82 mm[Hg] 03/03/2025 16:35:00 0055C-375th [facility] Mean Arterial Pressure, Cuff (Calc) 97 mm[Hg] 03/03/2025 16:35:00 0055C-375[facility] Peripheral Pulse Rate 78 bpm 03/03/2025 16:35:00 0055C-375th [facility] Temperature Oral 36.8 Carli 03/03/2025 16:35:00 0055C-375th [facility] BP Site Left arm 03/03/2025 16:35:00 0055C -375th [facility] Blood Pressure Manual Automatic 03/03/2025 16:35:00 0055C-375[facility] Respiratory Rate 16 br/min 03/03/2025 16:35:00 0055C-375th [facility] Mean Arterial Pressure, Cuff (Calc) 101 mm[Hg] 01/29/2025 15:38:00 6036O-Ac-L-3 75Th [facility] Systolic Blood Pressure 136 mm[Hg] 01/29/2025 15:38:00 3615F-Ko-U-375Th [facility] Diastolic Blood Pressure 83 mm[Hg] 01/29/2025 15:38:00 2194V-Er-D-375Th [facility] Blood Pressure Manual Automatic 01/29/2025 15:38:00 0233Q-Yh-A-375Th [facility] BP Site Left arm 01/29/2025 15:38:00 6130C -Af-C-375Th [facility] Temperature Oral 36.7 Carli 01/29/2025 15:38:00 4293I-Uv-A-375Th [facility] Respiratory Rate 18 br/min 01/29/2025 15:38:00 3153P-Ok-X-375Th [facility] Peripheral Pulse Rate 73 bpm 01/29/2025 15:38:00 6091D-Cg-B-375Th [facility] Systolic Blood Pressure 149 mm[Hg] 12/15/2024 13:22:00 3465V-Ey-E-375Th [facility] Diastolic Blood Pressure 90 mm[Hg] 12/15/2024 13:22:00 7415C-Fl-L-375Th [facility] Mean Arterial Pressure, Cuff (Calc) 110 mm[Hg] 12/15/2024 13:22:00 6700H-Aw-G-3 75Th [facility] Peripheral Pulse Rate 58 bpm 12/15/2024 13:22:00 3917C-Fi-W-375Th [facility] Respiratory Rate 18 br/min 12/15/2024 13:22:00 5402I-Qe-O-375Th [facility] Blood Pressure Manual Automatic 12/15/2024 13:22:00 2952N-Aw-N-375Th [facility] BP Site Left arm 12/15/2024 13:22:00 6130C -Af-C-375Th [facility] Respiratory Rate 16 br/min 01/14/2025 14:57:00 3198V-Dv-L-375Th [facility] Blood Pressure Manual Automatic 01/14/2025 14:57:00 2315U-Ui-M-375Th [facility] BP Site Left arm 01/14/2025 14:57:00 6130C -Af-C-375[facility] Peripheral Pulse Rate 73 bpm 01/14/2025 14:57:00 9363P-Ea-X-375Th [facility] Mean Arterial Pressure, Cuff (Calc) 94 mm[Hg] 01/14/2025 14:57:00 8533U-Av-A-3 75Th [facility] Systolic Blood Pressure 123 mm[Hg] 01/14/2025 14:57:00 7222D-Nn-Y-375Th [facility] Diastolic Blood Pressure 80 mm[Hg] 01/14/2025 14:57:00 5122G-Cq-F-375Th [facility] BP Site Left arm 05/25/2023 13:05:00 6130C -Af-C-375Th [facility] Blood Pressure Manual Automatic 05/25/2023 13:05:00 3116I-Qf-D-375Th [facility] Systolic Blood Pressure 137 mm[Hg] 12/29/2024 20:20:00 4346T-Rh-N-375Th [facility] Diastolic Blood Pressure 89 mm[Hg] 12/29/2024 20:20:00 5517S-Ye-M-375Th [facility] Peripheral Pulse Rate 74 bpm 12/29/2024 20:20:00 0026F-Mq-G-375Th [facility] Respiratory Rate 16 br/min 12/29/2024 20:20:00 4220H-Qy-U-375Th [facility] Mean Arterial Pressure, Cuff (Calc) 105 mm[Hg] 12/29/2024 20:20:00 6846D-Qv-G-3 75Th [facility] Temperature Oral 36.8 Carli 12/29/2024 20:20:00 9059J-Tz-N-375Th [facility] Encounters Combined list of: 1) Encounters from Department of Veterans Affairs facilities going backup to the last 18 months, not all VA inpatient encounters are included; 2) Encounters from the Department of Defense facilities going backup to 280 months. Location Location Details Encounter Type Encounter Number Reason For Visit Attending Provider ADM Date DC Date Status Disposition Source 5C- [facility] Between Visit [id number] 03/13 Discharge Disposition: Home or Self Care 0055C-3 [facility] [place] 0055C-375 th [facility] Between Visit [id number] 03/20 Discharge Disposition: Home or Self Care 0055C-3 [facility] [place] 6130C-Af- C-375Th [facility] Between Visit [id number] 03/20 Discharge Disposition: Home or Self Care 6130C-A f-C-375 Th [facility] [place] 6130C-Af- C-375Th [facility] [id number] Obesity , unspeci fied DAYNA PEDERSEN DBRUBAKER 04/07 Discharge Disposition: Home or Self Care 6130C-A f-C-375 Th [facility] [place] 5C-375 th [facility] [id number] Postmen opausal bleedin g,Decre ased libido JENNI COX MONETT 04/20 Discharge Disposition: Home or Self Care 0055C-3 [facility]th [facility] Procedures Combined list of: 1) Procedures from [facility], not all [facility] non-surgical procedures are included; 2) All procedures from the Department of Defense facilities. Procedure Procedure Type Code Date Perfomer Comments Sour e spinal fusion C4-C5 08/08/2022 0 055C-[facility]th [facility] right carpel tunnel 10/08/2016 0 055C-375th [facility] hysteroscopy with uterine polyp removed 10/08/2013 005 5C-[facility]th [facility] C/S with BTL 09/07/2000 0055C-37 [facility]th [facility] right ectopic 10/08/1998 0055C-3 [facility] C/S 01/06/1997 0055C-[facility] C/S 06/08/1995 0055C-[facility] WTE 10/08/1990 0055C-[facility] D+C 10/08/1986 0055C-[facility] Social History Combined list of available smoking, tobacco, and other social history from Department of Defense and Veterans Affairs facilities. Social History Type Response Date Comment Sourc e Sex Representation Female (finding) 11/30/2022 Unknown Organization Tobacco Cigarette use: Never-cigarette user. Other Tobacco use: Never-other tobacco user (not cigarettes). Ambulatory Pharmacy Sexual Orientation Ambula tory Pharmacy Gender identity Ambulator y Pharmacy Assessment and Plan Combined list of future care activities from Department of Defense and Veterans Affairs facilities (e.g., assessment and plan notes, appointments, orders, and referrals). Additional future care activities may be listed in the Plan of Care section. Result Assessment and Plan Date Source Assessment and Plan Extracted from:Title : Office Clinic Note Author: JENNI WHITE MD Date: 04/20/25 1. P ostmenopausal bleeding improved after switching from cyclic to daily progesterone. EMB negative for hyperplasia. Follow up in 6 months to reassess. 2. L ow libido -discussed multifactorial nature, as this has not improved with HRT. Recommended a book to help address the non-physical aspects of sex in relationships. -pt has no physical concerns related to sex, denies dryness or pain with intercourse. Happy in her relationship. No safety concerns. Maj Jenni Smith MD CORRECTIONAL CAPTAIN Staff Physician [address] [place] [address], [facility] [place], [place] Extracted from:Title: [facility] [place] - Obesity management (virtual) Author: DAYNA MOSLEY MD Date: 04/07/25 1. O besity Chronic, u ncontrolled. Current BMI: O besity Class II (35-39.9) - 35.82 (last office visit). She reports losing 19lbs. S he continues to following a healthy lifestyle. N o concerning signs of secondary causes of obesity. - increase Zepbound to 7.5mg weekly - Discussed increasing in 4 weeks v s c ontinuing a t this d ose f or a l onger period. She would like to continue on for 3 months. - Continue with lifestyle changes - F/u in 3 mos Self-management goal/Discussion: She has completed her first goal of weight < 200. She now wants to try and get off of her BP meds. Intervention: Increase Zepbound. Continue with exercising 6x a week. Focus on healthy snacks. Progress: Progressing This appointment was performed virtually (via telephone to telephone). Patient s name and were verified prior to beginning the encounter for security purposes. Patient encouraged to return to clinic, present to UCC or ER for persistent worsening or development of other concerning symptoms. Patient cites understanding and agrees with plan of care. A total of 20 minutes was spent on this visit reviewing previous notes, counseling the patient on the listed diagnoses, reviewing/ordering tests, adjusting medications, and documenting the findings in this note. Capt Shah M D Staff Physician, Internal Medicine [address], [place], [place] Extracted from:Title: COLLEGE COUNSELOR Consult-- EMBX Author: STARLA CUNNINGHAM MD Date: 03/03/25 1. P ostmenopausal bleeding - Patient has been amenorrheic x 5 years (2019), started on HT for management of vasomotor syndrome of menopause with estrogen and cyclical progesterone (started Oct 2024) - Patient has had monthly bleeding since december -- December: 2 days bleeding -- January: 5 days bleeding, cramping -- February: 4-6 days of bleeding last week, severe cramping - Patient has had US showing thickened endometrial stripe at 0.6cm - Underwent endometrial biopsy today to r/o hyperplasia or malignancy - Reviewed likely mechanism given likely iatrogenic etiology if malignancy ruled out. Reviewed that we can switch to daily oral progesterone or Mirena IUD in order to minimize bleeding. Briefly reviewed alternative medications for VSM such at Veozah or SSRIs (previously tried and unsuccessful). Also briefly reviewed surgical options such as hysteroscopy or definitive hysterectomy - Discussed post-procedure instruction sand expectations. Reviewed what is not normal and needs to present to ED right away. - Encouraged to take it easy today, take naproxen for cramping and utilize a heating pad - Patient wants to switch to daily progesterone and reassess Ordered: [facility] 2. O besity - BMI 35 - Currently on Tirzepatide Orders: progesterone(progesterone 200 mg oral capsule), 1 cap(s), Oral, Daily, X 90 days, # 90 cap(s), 1 total refill(s), Acute, Pharmacy: [facility] [Not filled] HCG, Urine POC F/u Results of EMBX All questions answered. Patient verbalized understanding and agrees to proceed with plan as above. F/u in 4 weeks to see if change in bleeding pattern [facility] Gynecologic Surgery and Obstetrics [address]/[facility]/[place], [place] Extracted from:Title: COLLEGE COUNSELOR Office Clinic Note Author: CAMILO SANTIAGO, Date: 02/03/25 1. 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 No bleeding currently. Reviewed evaluation with Pelvic US. This was not completed in ED when patient presented on Sunday. Pelvic US ordered. will have patient follow-up with CORRECTIONAL CAPTAIN in clinic once complete. Reviewed I will be and unable to take her to OR in the event a polyp is found, etc. All questions answered. Ordered: US Pelvis Comp w/Transvag if indicated Extracted from:Title: - Cervical stenosis/radiculopathy Author: KARINA COLEMAN MD Date: 01/29/25 1. C ervical radiculopathy Ordered: 2. S alex stenosis in cervical region MRI with moderate to severe progression of C4-5 stenosis and foraminal narrowing at all levels - Refer to neurosurgery Ordered: Referral Request 2.0 - DoD Patient understood, relayed back, and agreed with the plan. Patient aware to call 911 or go to the nearest emergency room/urgent care for any urgent/emergent concerns or call and leave message with the clinic for any other concerns. Patient can also access [email or web address] at [email or web address] to leave message with PCM Team. A total of 20 minutes was spent on this visit reviewing previous records, counseling the patient on the listed diagnoses, reviewing/ordering tests, adjusting medications, and/or documenting the findings in this note. //SIGNED// Capt Karina Coleman DO Linter Operator Physician, PGY-[address] [facility], [facility] Geoff JONES This note was dictated using [employer] dictation software. While it was proofread for errors, there may still be grammatical and dictation errors. Addendum by SOSA VARELA MD, Family Medicine on February 02, 2025 15:27:36 CDT I was present in the clinic to see this patient with the resident. I have reviewed and agree with the written findings. Sosa Varela MD Extracted from:Title: FM- med f/u obesity Author: KERI PEREZ MD Date: 01/14/25 1. O besity Chronic, u ncontrolled. Current BMI: O besity Class II (35-39.9) - 36.53. No concerning signs of secondary causes of obesity. No e/o medication s/e past 2.5 weeks 4lb wt loss in 3 weeks on tirzepitide Recommendations: - Labs: NONE today [_] Lipid panel [_] A1C [_] TSH [_] CMP [_] Other: - Goals of therapy: [X] weight loss of 5-7% - Lifestyle modifications: [_] Discussed the importance of weight loss and disease associated risks of obesity [x] Encouraged increased exercise regimen with goal of 150min o f moderate exercise weekly - still works out 6days/wk [x] Discussed dietary modifications to include: low-fat/low-calorie, moderate-fat/low-calorie, low-carbohydrate, and Mediterranean diets - trying to inc protein and fresh frtuis/veggies - Referrals: [_] Nutrition [_] Bariatric Surgery (BMI > 4 0, or BMI 35-39.9 with one serious comorbidity) -GLP-1 Receptor Agonists: (Fourth Line) [X] On tirzepitide - i nitial 2.5mg for 4 weeks, then inc to 5mg weekly. May increase in 2.5mg increments every 4 weeks - may 15mg/week. -Ordered 5 mg weekly - 2 mo supply - follow up 6 weeks for wt check med check Maj GERALD, MD Geoff [employer] Family Medicine, PGY-3 Orders: tirzepatide(tirzepatide (Zepbound) Pen 5 mg/0.5 mL subcutaneous solution), 5 mg, SubCutaneous, every week, for weight management, # 6 mL, 0 total refill(s), Maintenance, 6 mL = 84 day supply, pen needles not needed, integrated into device, Pharmacy: [facility] [Not filled] Addendum by SOSA VARELA MD, Family Medicine on January 14, 2025 11:31:07 CDT I was present in the FM clinic to see this patient with the resident. I have reviewed and agree with the written findings. Sosa Varela MD Extracted from:Title: Office Clinic Note Author: LIZ AKINS MD Date: 12/29/24 1. C ervical radiculopathy Pt with hx of cervical radiculopathy and spinal fusion, now with recurrent symptoms concerning for the like. Spurling positive, but no red flag signs. However, given hx o f surgical intervention will obtain cervical spine XR to evaluate further. If concern on initial imaging will pursue MRI of cervical spine. Furthermore, will refer patient out to PT for evaluation and treatment. Pt educated on NSAID and tylenol u daisy as well as reducing load on shoulder's while we await test results. Will have patient follow up in 4-5 weeks for revaluation or sooner if needed. Ordered: XR Spine Cervical 2 or 3 Views Referral Request 2.0 - DoD Liz Akins M.D. PGY-1 SWIL Linter Operator Capt [facility] Addendum by ADITHYA CABRALES MD, Family Medicine on February 02, 2025 17:29:47 CDT I was present and available in the family medicine clinic during the patient's appointment.? The case was discussed with me and I agree with the assessment and plan as documented. ? HLF Extracted from:Title: [facility]- Annual, Hand Swelling Author: DEMIAN COLEMAN MD Date: 12/15/24 1. E ssential hypertension Chronic, u ncontrolled. Pt with BP outside g oal range per J [place]-8 guidelineswith goal of < 140/90. No medication side effects or concerns of non-adherence. Out of medication for last week. Will r efill and then recheck at home. Plan for f ollow-up in 30 days with weight loss drug. Recommendations: - M edication Change(s): n one. Cont losartan 50mg qd and hctz 25mg - Discussed lifestyle modifications as listed below - Maintenance Labs: RFP, ACR, A1C, Lipid Panel - R ecommended continued home B P m onitoring and validating monitor - Follow up in 30 days along with weight loss drug to follow-up BP control - Patient agrees with plan Ordered: Microalbumin Panel, Urine 2. W ell adult Preventative Medicine / HCM visit with no emergent concerns. ----- VACCINES: - Advised annual flu vaccine - Advised COVID-19 vaccine ----- - Cervical Cancer Screening: U TD F suhass with women's health - Breast C ancer Screening: LUANNE baezt had mammogram done. F/u results - L estela Cancer Screening: N /A - C olon Cancer Screening: LUANNE marion U TD and had in 2019. Was recommended 5 year f/u. Discuss can put referral in then ----- SEXUAL HEALTH: Hepc C: Neg 07/26, recheck prn ----- : N o plans for future in next 12 months ----- METABOLIC: - L ipid screening: U TD A SCVD 3.2% - D M screening: DUE ----- SUBSTANCE USE: - T obacco use: D enies - Alcohol use: Admits R gustavo, o nce every couple months - Illicit drug use: Denies ----- FOLLOW UP: - Annually Ordered: Hemoglobin A1c 3. O besity Chronic, uncontrolled. Current BMI: 38. Reports exercising 6 days a week with BODY program as well as making dietary changes with cutting down on meal sizes and eating leaner foods. - Order a1c - F/u results then place prior auth for GLP1 - Goals of weight loss 5-7% - Have f/u 30 days for med f/u after starting GLP1 4. S welling of hand Chronic, worsening, uncontrolled. Hx of bilateral h and swelling, pain, with prominent nodules noted at DIP joints on the right as well as the left hand. No family hx of autoimmune conditions, suspect RA. - Order ESR, MARGIE, RF, anti-ccp - F/u results and consider rheumatology referral Ordered: MARGIE Screen Panel ESR [employer]oplus Rheumatoid Factor, Quantitative Orders: hydroCHLOROthiazide(hydroCHLOROthi azide 25 mg oral tablet), 1 tab(s), Oral, Daily, for blood pressure, # 90 tab(s), 3 total refill(s), Maintenance, Pharmacy: [facility] [Not filled] losartan(losartan 50 mg oral tablet), 1 tab(s), Oral, Daily, for blood pressure, # 90 tab(s), 3 total refill(s), Maintenance, Pharmacy: [facility] [Not filled] Capt Demian Coleman MD Linter Operator, PGY-[address] [place] [address], [place], [place] Addendum by EVERTON TINSLEY MD on December 15, 2024 17:09:51 CDT On the day of encounter, I was available for discussion with the resident physician. Case was discussed with me in the Teach Room. I agree with the assessment and plan of care as documented above with any exceptions/additions noted below if necessary. All labs/rads/consults to be followed by the ordering provider. DO Jeffrey Duarte, [facility] Family Medicine Physician Extracted from:Title: COLLEGE COUNSELOR Office Clinic Note Author: CAMILO SANTIAGO DO Date: 11/11/24 1. 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 VS show elevated BP, did not take HCTZ today. PE benign. Patient was provided with counseling on CAROLINE and treatment of menopausal symptoms including lowest dose estrogen + progesterone (retained uterus) for endometrial protection f or shortest duration to manage vasomotor symptoms. She has no contraindications to starting HRT. 10 year ASCVD risk: 3.5%? We discussed the primary goal of HRT with ET is to relieve the vasomotor symptoms of hot flashes and night sweats. We discussed other symptoms of menopause which respond to HRT include mood irritability, joint pain, and sleep disturbances. R esults of the WHI and risks specifically there is an?increased risk of VTE/PE, however, the absolute risk is low, this was primarily demonstrated with medroxyprogesterone and not micronized progesterones. We reviewed various routes of medication including cream/gel, spray, transdermal patches, and oral medications. I reviewed the patient's m edical history and recent labs. Her current ASCVD risk is 1 - 4.9% (low). T here are no contraindications (hypertriglyceridemia, active gallbladder disease, known thrombophilias, or personal history of venous thromboembolism [VTE], breast, uterine or ovarian cancer). We reviewed the principle of the lowest effective dose for the shortest duration, and patient is amenable to this plan. She desires to proceed with o ral pills. #Well Woman Exam: - Pap UTD - D eferred G C/CT - Breast exam deferred n o complaints, due for mammogram - ordered - No concerns of sexual dysfunction or IPV - Patient is u p to date on immunizations; - Preventive counseling: diet and exercise reviewed - Preventive labs ordered: Vitamin D, TSH, HgBA1c, Lipid panel, CBC, CMP Bladder diary provided, AUGS CAROLINE handouts provided. Recommend follow-up in 1-2 weeks for CAROLINE evaluation. All questions answered. 2. E ssential hypertension elevated BP noted. Not taking HCTZ - Rx ordered for 30 days Patient to follow-up with PCM for continued management 3. M enopausal and female climacteric states as above 4. U nspecified urinary incontinence as above Orders: conjugated estrogens(conjugated estrogens 0.3 mg oral tablet), 1 tab(s), Oral, Daily, # 90 tab(s), 3 total refill(s), Maintenance, Pharmacy: [facility] [Not filled] hydroCHLOROthiazide(hydroCHLOROthi azide 25 mg oral tablet), 1 tab(s), Oral, Daily, for blood pressure, # 30 tab(s), 0 total refill(s), Maintenance, Pharmacy: [facility] [Not filled] progesterone(progesterone 200 mg oral capsule), 1 cap(s), Oral, Daily, take 1 pill orally 12 days out of the month while on estrogen, X 12 days, # 12 cap(s), 3 total refill(s), Acute, Pharmacy: [facility] [Not filled] CBC w/ Diff Hemoglobin A1c Lipid Panel Thyroid Stimulating Hormone Vitamin D 25 Hydroxy Level MG Mammo Navdeep Screening Bilateral Extracted from:Title: COLLEGE COUNSELOR virtual; LLQ pain Author: ALISHA SHIRLEY NP Date: 12/06/23 1. L LQ pain discussed possible adhesions with multiple surgeries, discussed possible GI or MS source; pt desires to observe with nl left ovary 2. O ther specified abnormal findings of blood chemistry low fat/low chol diet, no more than 25% total calories from fat, decrease carbs to decrease TG; repeat 1yr fasting 3. E ssential hypertension enc to monitor home BP and f/u with PCM if >140/90 Alisha [facility] Extracted from:Title: COLLEGE COUNSELOR WWE/pap/LLQ pain Author: ALISHA SHIRLEY NP Date: 11/19/23 1. E ncounter for gynecological examination (general) (routine) with abnormal findings Over 50% of m inute visit spent face to face with patient on education, reviewing history, and developing plan of care. Continue monthly BSE and yearly well woman exams. Return to clinic in 1 year. Exercise: 30 minutes of moderate exercise 5 days a week including cardio and strength training is recommended for a healthy lifestyle. T his should be in addition to your normal daily work/routine. If you are trying to lose weight more exercise along with a healthy diet is recommended. Supplements/Vitamins: If you are not following, or able to follow a well-balanced diet indicated below due to personal or medical reasons, it is recommended you take a m ultivitamin. This is especially important if you are trying to get as w caitlyn need additional folic acid before and during (400-1000 micrograms per day). Daily calcium intake should be around 1200 mg per day w hich is 120% of the recommended daily allowance if looking at food labels.? W e recommend V itamin D3 2,000-3,000 international units a day i f you have not already been identified with an insufficiency or deficiency. Nutrition: A healthy diet with protein, vegetables, fruits, grains, and dairy is advised. More information including example serving sizes can be found at h ttps://www.[employer].gov/.&#16 0; T hese amounts are appropriate for individuals who get less than 30 minutes per day of moderate physical activity, beyond normal daily activities. Those who are more physically active may be able to consume more while staying within calorie needs. Ordered: CT Bone Density Axial Skeleton MG Mammo Navdeep Screening Bilateral 2. E ncounter for screening for malignant neoplasm of cervix co test 5yrs if nl Ordered: AP Cytology COLLEGE COUNSELOR HPV High Risk (16/18/Other) 3. F lushing states tolerable even after stopping paxil Ordered: TSH w/ Reflex FT4 and Total T3 4. L LQ pain random, intermittent; to schedule virtual appt with me for 2-3days after US appt Ordered: US Pelvis w/ Transvag non-OB Complete 5. O ther specified abnormal findings of blood chemistry low fat/low chol diet, no more than 25% total calories from fat, Ordered: Lipid Panel 6. E ssential hypertension elevated BP today; states occ monitors at home; took meds last night; to monitor at home for next 1-2wks and f/u with PCM if elevated 7. O besity increase exercise, decrease calories to decrease wt/BMI; advised healthy lifestyle, namely whole food plant based diet w/ regular exercise. Advise nutrition tj/diary to track energy intake vs expenditure f/u prn PVUA. 8. 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 E ssential hypertension BP 141/82, goal <140/80 2/2 adults < 60 per jnc8 Continue L osartan 50 Continue HCTZ 25mg L ab results December 2021: Microalbumin below threshold, BMP: Cr: 0.7 ASCVD 2.6% no statin recommended at this time Orders: hydroCHLOROthiazide(hydroCHLOROthi azide 25 mg oral tablet), 1 tab(s), Oral, Daily, for blood pressure, # 90 tab(s), 3 total refill(s), Maintenance, 1 tab(s) Oral Daily,x90 days,Instr:for blood pressure, Pharmacy: [facility] [Not filled] losartan(losartan 50 mg oral tablet), 1 tab(s), Oral, Daily, for blood pressure, # 90 tab(s), 3 total refill(s), Maintenance, 1 tab(s) Oral Daily,x90 days,Instr:for blood pressure, Pharmacy: [facility] [Not filled] Capt Esdras Wilson MD Linter Operator P GY-2 Geoff [facility] Staffed By: Janessa Addendum by KIMBERLY RIDDLE MD on September 14, 2023 14:57:28 MORNING SHOW HOST On the date of this encounter, I was immediately available to assist the resident in the care of this patient and have reviewed and agree with the residents findings and plan of care. Lt Col Kimberly Riddle MD Family Medicine Physician [facility] [place], [place] Extracted from:Title: SPORTS MED: Medial Meniscus Tear Author: MEDINA MORALES DO Date: 08/13/23 1. A cute meniscal tear, medial, posterior horn 53 yo F with acute on chronic posterior horn medial meniscal tear with extrusion, unrelieved with conservative measures. Desires surgical consultation. - Educated to continue home PT - Trial use of brace for MCL partial tear - Meloxicam once daily, dose with dinner to allow maximal benefit nightly - Ortho consult placed - Follow-up PRN. Can consider injection therapy, patient declined today. Ordered: Referral Request 2.0 2. P opliteal cyst Chronic. Stable. Consider aspiration in the future if desired by patient. Ordered: Referral Request 2.0 Orders: meloxicam(meloxicam 15 mg oral tablet), 1 tab(s), Oral, Daily, # 90 tab(s), 0 total refill(s), Maintenance, 1 tab(s) Oral Daily, Pharmacy: [facility] [Not filled] //SIGNED// Maj Medina Goodwin DO, CAQSM Sports/Family Medicine Faculty Physician [address] [place] [address], [facility] [place], [place] Extracted from:Title: Ambulatory Patient Education Author: MEDINA MORALES DO Date: 08/13/23 Orthopedics Knee Exercises Ask your health care provider which exercises are safe for you. Do exercises exactly as told by your health care provider and adjust them as directed. It is normal to feel mild stretching, pulling, tightness, or discomfort as you do these exercises. Stop right away if you feel sudden pain or your pain gets worse. Do not begin these exercises until told by your health care provider. Stretching and wddey-jc-opxeew exercises These exercises warm up your muscles and joints and improve the movement and flexibility of your knee. These exercises also help to relieve pain and swelling. Knee extension, prone 1. Lie on your abdomen (prone position) on a bed. 2. Place your left / right knee just beyond the edge of the surface so your knee is not on the bed. You can put a towel under your left / right thigh just above your kneecap for comfort. 3. Relax your leg muscles and allow gravity to straighten your knee (extension). You should feel a stretch behind your left / right knee. 4. Hold this position for seconds. 5. Scoot up so your knee is supported between repetitions. Repeat times. Complete this exercise times a day. Knee flexion, active 1. Lie on your back with both legs straight. If this causes back discomfort, bend your left / right knee so your foot is flat on the floor. 2. Slowly slide your left / right heel back toward your buttocks. Stop when you feel a gentle stretch in the front of your knee or thigh (flexion). 3. Hold this position for seconds. 4. Slowly slide your left / right heel back to the starting position. Repeat times. Complete this exercise times a day. Quadriceps stretch, prone 1. Lie on your abdomen on a firm surface, such as a bed or padded floor. 2. Bend your left / right knee and hold your ankle. If you cannot reach your ankle or pant leg, loop a belt around your foot and grab the belt instead. 3. Gently pull your heel toward your buttocks. Your knee should not slide out to the side. You should feel a stretch in the front of your thigh and knee (quadriceps). 4. Hold this position for seconds. Repeat times. Complete this exercise times a day. Hamstring, supine 1. Lie on your back (supine position). 2. Loop a belt or towel over the ball of your left / right foot. The ball of your foot is on the walking surface, right under your toes. 3. Straighten your left / right knee and slowly pull on the belt to raise your leg until you feel a gentle stretch behind your knee (hamstring). Do not let your knee bend while you do this. Keep your other leg flat on the floor. 4. Hold this position for seconds. Repeat times. Complete this exercise times a day. Strengthening exercises These exercises build strength and endurance in your knee. Endurance is the ability to use your muscles for a long time, even after they get tired. Quadriceps, isometric This exercise stretches the muscles in front of your thigh (quadriceps) without moving your knee joint (isometric). 1. Lie on your back with your left / right leg extended and your other knee bent. Put a rolled towel or small pillow under your knee if told by your health care provider. 2. Slowly tense the muscles in the front of your left / right thigh. You should see your kneecap slide up toward your hip or see increased dimpling just above the knee. This motion will push the back of the knee toward the floor. 3. For seconds, hold the muscle as tight as you can without increasing your pain. 4. Relax the muscles slowly and completely. Repeat times. Complete this exercise times a day. Straight leg raises This exercise stretches the muscles in front of your thigh (quadriceps) and the muscles that move your hips (hip flexors). 1. Lie on your back with your left / right leg extended and your other knee bent. 2. Tense the muscles in the front of your left / right thigh. You should see your kneecap slide up or see increased dimpling just above the knee. Your thigh may even shake a bit. 3. Keep these muscles tight as you raise your leg 4 6 inches (10 1 5 cm) off the floor. Do not let your knee bend. 4. Hold this position for seconds. 5. Keep these muscles tense as you lower your leg. 6. Relax your muscles slowly and completely after each repetition. Repeat times. Complete this exercise times a day. Hamstring, isometric 1. Lie on your back on a firm surface. 2. Bend your left / right knee about degrees. 3. Dig your left / right heel into the surface as if you are trying to pull it toward your buttocks. Tighten the muscles in the back of your thighs (hamstring) to dig as hard as you can without increasing any pain. 4. Hold this position for seconds. 5. Release the tension gradually and allow your muscles to relax completely for seconds after each repetition. Repeat times. Complete this exercise times a day. Hamstring curls If told by your health care provider, do this exercise while wearing ankle weights. Begin with lb weights. Then increase the weight by 1 lb (0.5 kg) increments. Do not wear ankle weights that are more than lb. 1. Lie on your abdomen with your legs straight. 2. Bend your left / right knee as far as you can without feeling pain. Keep your hips flat against the floor. 3. Hold this position for seconds. 4. Slowly lower your leg to the starting position. Repeat times. Complete this exercise times a day. Squats This exercise strengthens the muscles in front of your thigh and knee (quadriceps). 1. rn visiting front of a table, with your feet and knees pointing straight ahead. You may rest your hands on the table for balance but not for support. 2. Slowly bend your knees and lower your hips like you are going to sit in a chair. Keep your weight over your heels, not over your toes. Keep your lower legs upright so they are parallel with the table legs. Do not let your hips go lower than your knees. Do not bend lower than told by your health care provider. If your knee pain increases, do not bend as low. 3. Hold the squat position for seconds. 4. Slowly push with your legs to return to standing. Do not use your hands to pull yourself to standing. Repeat times. Complete this exercise times a day. Wall slides This exercise strengthens the muscles in front of your thigh and knee (quadriceps). 1. Lean your back against a smooth wall or door, and walk your feet out 18 2 4 inches (46?61 cm) from it. 2. Place your feet hip-width apart. 3. Slowly slide down the wall or door until your knees bend degrees. Keep your knees over your heels, not over your toes. Keep your knees in line with your hips. 4. Hold this position for seconds. Repeat times. Complete this exercise times a day. Straight leg raises This exercise strengthens the muscles that rotate the leg at the hip and move it away from your body (hip abductors). 1. Lie on your side with your left / right leg in the top position. Lie so your head, shoulder, knee, and hip line up. You may bend your bottom knee to help you keep your balance. 2. Roll your hips slightly forward so your hips are stacked directly over each other and your left / right knee is facing forward. 3. Leading with your heel, lift your top leg 4 6 inches (10 1 5 cm). You should feel the muscles in your outer hip lifting. Do not let your foot drift forward. Do not let your knee roll toward the ceiling. 4. Hold this position for seconds. 5. Slowly return your leg to the starting position. 6. Let your muscles relax completely after each repetition. Repeat times. Complete this exercise times a day. Straight leg raises This exercise stretches the muscles that move your hips away from the front of the pelvis (hip extensors). 1. Lie on your abdomen on a firm surface. You can put a pillow under your hips if that is more comfortable. 2. Tense the muscles in your buttocks and lift your left / right leg about 4 6 inches (10?15 cm). Keep your knee straight as you lift your leg. 3. Hold this position for seconds. 4. Slowly lower your leg to the starting position. 5. Let your leg relax completely after each repetition. Repeat times. Complete this exercise times a day. This information is not intended to replace advice given to you by your health care provider. Make sure you discuss any questions you have with your health care provider. Document Revised: 07/15/2019 Document Reviewed: 07/15/2019 [employer] Patient Education 2021 [employer] Extracted from:Title: Family Medicine - Left Knee/Calf Pain Author: MARY JO WILHELM DO Date: 07/18/23 1. L eft knee pain 53 year old female with known OA of the left knee presenting with pain rapidly worsening over the past 3 weeks. Differential includes meniscal injury, OA, ACL/PCL tear, hip OA with referred pain to the knee. History negative for injury. Positive Mary's sign on exam. Meniscal injury seems to be most likely etiology of symptoms. -MRI of the left knee for further evaluation -If meniscal injury present, can consider orthopedics referral -Weightbearing x-rays from 12/2022 reviewed -Patient advised to call sports medicine clinic to schedule follow up evaluation -Return precautions discussed Ordered: US Lower Ext Venous Duplex Left Referral Request 2.0 2. P ain of left calf Differential includes referred pain from the knee, DVT, muscle strain. History not concerning for malignancy, clotting disorder, recent surgery. Recent flight to [place]. N o signs or symptoms concerning for PE. Patient strength trains daily, so muscle strain cannot be excluded. -DVT LLE to rule out DVT -Return precautions discussed in depth -If DVT present, consider treatment with DOAC Ordered: US Lower Ext Venous Duplex Left Referral Request 2.0 Mary Jo Wilhelm DO Linter Operator, PGY-2 [place] [employer] Addendum by ENMA BAIN DO on July 18, 2023 11:37:37 CDT I certify that I was present for case discussion in the Family Medicine preceptor room at the time of this encounter. I have reviewed the note and agree with the findings, assessment, and plan except as I have documented below. Follow up as listed. All labs/imaging/consults to be followed by the ordering provider. Enma Bain, , [facility], Staff Physician Extracted from:Title: Family Medicine - Left knee pain Author: WARREN MIRZA DO Date: 05/25/23 1. L eft knee pain Acute. Mild improvement from initial pain. Will refer pt to Sports Medicine for further evaluation, possible hyaluronic acid injection. Suspect acute flare of OA. Advised pt to continue icing and elevating daily, use of NSAIDs for analgesia. Pt verbalized understanding and agrees with the plan. Warren Mirza DO, Tl, [employer], Linter Operator [address] [facility] [employer] Addendum by PASTORA HERNADEZ MD on May 25, 2023 15:45:02 CDT I was present and available in the Family Medicine Clinic to discuss this patient's care for the duration of the appointment. I agree with the residents assessment and plan as document with the following addendum: None. Pastora Hernadez MD. Family Medicine Faculty. 06/01/2025 [id number] Extracted from:Title : Office Clinic Note Author: JENNI WHITE MD Date: 04/20/25 1. P ostmenopausal bleeding improved after switching from cyclic to daily progesterone. EMB negative for hyperplasia. Follow up in 6 months to reassess. 2. L ow libido -discussed multifactorial nature, as this has not improved with HRT. Recommended a book to help address the non-physical aspects of sex in relationships. -pt has no physical concerns related to sex, denies dryness or pain with intercourse. Happy in her relationship. No safety concerns. Maj Jenni Smith MD CORRECTIONAL CAPTAIN Staff Physician [address] [facility], [facility] [place], [place] Extracted from:Title: [facility] - Obesity management (virtual) Author: DAYNA MOSLEY MD Date: 04/07/25 1. O besity Chronic, u ncontrolled. Current BMI: O besity Class II (35-39.9) - 35.82 (last office visit). She reports losing 19lbs. S he continues to following a healthy lifestyle. N o concerning signs of secondary causes of obesity. - increase Zepbound to 7.5mg weekly - Discussed increasing in 4 weeks v s c ontinuing a t this d ose f or a l onger period. She would like to continue on for 3 months. - Continue with lifestyle changes - F/u in 3 mos Self-management goal/Discussion: She has completed her first goal of weight < 200. She now wants to try and get off of her BP meds. Intervention: Increase Zepbound. Continue with exercising 6x a week. Focus on healthy snacks. Progress: Progressing This appointment was performed virtually (via telephone to telephone). Patient s name and were verified prior to beginning the encounter for security purposes. Patient encouraged to return to clinic, present to UCC or ER for persistent worsening or development of other concerning symptoms. Patient cites understanding and agrees with plan of care. A total of 20 minutes was spent on this visit reviewing previous notes, counseling the patient on the listed diagnoses, reviewing/ordering tests, adjusting medications, and documenting the findings in this note. Capt Shah M D Staff Physician, Internal Medicine [address], [place] [facility] [place], [place] Extracted from:Title: COLLEGE COUNSELOR Consult-- EMBX Author: STARLA CUNNINGHAM MD Date: 03/03/25 1. P ostmenopausal bleeding - Patient has been amenorrheic x 5 years (2019), started on HT for management of vasomotor syndrome of menopause with estrogen and cyclical progesterone (started Oct 2024) - Patient has had monthly bleeding since december -- December: 2 days bleeding -- January: 5 days bleeding, cramping -- February: 4-6 days of bleeding last week, severe cramping - Patient has had US showing thickened endometrial stripe at 0.6cm - Underwent endometrial biopsy today to r/o hyperplasia or malignancy - Reviewed likely mechanism given likely iatrogenic etiology if malignancy ruled out. Reviewed that we can switch to daily oral progesterone or Mirena IUD in order to minimize bleeding. Briefly reviewed alternative medications for VSM such at Veozah or SSRIs (previously tried and unsuccessful). Also briefly reviewed surgical options such as hysteroscopy or definitive hysterectomy - Discussed post-procedure instruction sand expectations. Reviewed what is not normal and needs to present to ED right away. - Encouraged to take it easy today, take naproxen for cramping and utilize a heating pad - Patient wants to switch to daily progesterone and reassess Ordered: AP Surgical Pathology 2. O besity - BMI 35 - Currently on Tirzepatide Orders: progesterone(progesterone 200 mg oral capsule), 1 cap(s), Oral, Daily, X 90 days, # 90 cap(s), 1 total refill(s), Acute, Pharmacy: [facility] [Not filled] HCG, Urine POC F/u Results of EMBX All questions answered. Patient verbalized understanding and agrees to proceed with plan as above. F/u in 4 weeks to see if change in bleeding pattern Starla Cunningham D.O. , [facility] Gynecologic Surgery and Obstetrics [address] [facility] [place] Extracted from:Title: COLLEGE COUNSELOR Office Clinic Note Author: CAMILO SANTIAGO DO Date: 02/03/25 1. 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 No bleeding currently. Reviewed evaluation with Pelvic US. This was not completed in ED when patient presented on Sunday. Pelvic US ordered. will have patient follow-up with CORRECTIONAL CAPTAIN in clinic once complete. Reviewed I will be and unable to take her to OR in the event a polyp is found, etc. All questions answered. Ordered: US Pelvis Comp w/Transvag if indicated Extracted from:Title: FM- Cervical stenosis/radiculopathy Author: KARINA COLEMAN MD Date: 01/29/25 1. C ervical radiculopathy Ordered: 2. S alex stenosis in cervical region MRI with moderate to severe progression of C4-5 stenosis and foraminal narrowing at all levels - Refer to neurosurgery Ordered: Referral Request 2.0 - DoD Patient understood, relayed back, and agreed with the plan. Patient aware to call 911 or go to the nearest emergency room/urgent care for any urgent/emergent concerns or call and leave message with the clinic for any other concerns. Patient can also access [employer]scale at [email or web address] to leave message with PCM Team. A total of 20 minutes was spent on this visit reviewing previous records, counseling the patient on the listed diagnoses, reviewing/ordering tests, adjusting medications, and/or documenting the findings in this note. //SIGNED// Capt Karina Coleman DO Linter Operator Physician, PGY-[address] [facility], [facility] [place] This note was dictated using [employer] dictation software. While it was proofread for errors, there may still be grammatical and dictation errors. Addendum by SOSA VARELA MD, Family Medicine on February 02, 2025 15:27:36 CDT I was present in the FM clinic to see this patient with the resident. I have reviewed and agree with the written findings. Sosa Varela MD Extracted from:Title: FM- med f/u obesity Author: KERI PEREZ MD Date: 01/14/25 1. O besity Chronic, u ncontrolled. Current BMI: O besity Class II (35-39.9) - 36.53. No concerning signs of secondary causes of obesity. No e/o medication s/e past 2.5 weeks 4lb wt loss in 3 weeks on tirzepitide Recommendations: - Labs: NONE today [_] Lipid panel [_] A1C [_] TSH [_] CMP [_] Other: - Goals of therapy: [X] weight loss of 5-7% - Lifestyle modifications: [_] Discussed the importance of weight loss and disease associated risks of obesity [x] Encouraged increased exercise regimen with goal of 150min o f moderate exercise weekly - still works out 6days/wk [x] Discussed dietary modifications to include: low-fat/low-calorie, moderate-fat/low-calorie, low-carbohydrate, and Mediterranean diets - trying to inc protein and fresh frtuis/veggies - Referrals: [_] Nutrition [_] Bariatric Surgery (BMI > 4 0, or BMI 35-39.9 with one serious comorbidity) -GLP-1 Receptor Agonists: (Fourth Line) [X] On tirzepitide - i nitial 2.5mg for 4 weeks, then inc to 5mg weekly. May increase in 2.5mg increments every 4 weeks - may 15mg/week. -Ordered 5 mg weekly - 2 mo supply - follow up 6 weeks for wt check med check Maj GERALD, [facility] [employer] Family Medicine, PGY-3 Orders: tirzepatide(tirzepatide (Zepbound) Pen 5 mg/0.5 mL subcutaneous solution), 5 mg, SubCutaneous, every week, for weight management, # 6 mL, 0 total refill(s), Maintenance, 6 mL = 84 day supply, pen needles not needed, integrated into device, Pharmacy: [facility] [Not filled] Addendum by SOSA VARELA MD, Family Medicine on January 14, 2025 11:31:07 CDT I was present in the FM clinic to see this patient with the resident. I have reviewed and agree with the written findings. Sosa Varela MD Extracted from:Title: Office Clinic Note Author: LIZ AKINS MD Date: 12/29/24 1. C ervical radiculopathy Pt with hx of cervical radiculopathy and spinal fusion, now with recurrent symptoms concerning for the like. Spurling positive, but no red flag signs. However, given hx o f surgical intervention will obtain cervical spine XR to evaluate further. If concern on initial imaging will pursue MRI of cervical spine. Furthermore, will refer patient out to PT for evaluation and treatment. Pt educated on NSAID and tylenol u daisy as well as reducing load on shoulder's while we await test results. Will have patient follow up in 4-5 weeks for revaluation or sooner if needed. Ordered: XR Spine Cervical 2 or 3 Views Referral Request 2.0 - April Akins M.D. PGY-1 SWIL Linter Operator [facility] Addendum by ADITHYA CABRALES MD, Family Medicine on February 02, 2025 17:29:47 CDT I was present and available in the family medicine clinic during the patient's appointment.? The case was discussed with me and I agree with the assessment and plan as documented. ? HLF Extracted from:Title: [facility]- Annual, Hand Swelling Author: DEMIAN COLEMAN MD Date: 12/15/24 1. E ssential hypertension Chronic, u ncontrolled. Pt with BP outside g oal range per J [place]-8 guidelineswith goal of < 140/90. No medication side effects or concerns of non-adherence. Out of medication for last week. Will r efill and then recheck at home. Plan for f ollow-up in 30 days with weight loss drug. Recommendations: - M edication Change(s): n one. Cont losartan 50mg qd and hctz 25mg - Discussed lifestyle modifications as listed below - Maintenance Labs: RFP, ACR, A1C, Lipid Panel - R ecommended continued home B P m onitoring and validating monitor - Follow up in 30 days along with weight loss drug to follow-up BP control - Patient agrees with plan Ordered: Microalbumin Panel, Urine 2. W ell adult Preventative Medicine / HCM visit with no emergent concerns. ----- VACCINES: - Advised annual flu vaccine - Advised COVID-19 vaccine ----- - Cervical Cancer Screening: U TD F ollows with women's health - Breast C ancer Screening: UTD J ust had mammogram done. F/u results - L estela Cancer Screening: N /A - C olon Cancer Screening: UTD Caryl marion U TD and had in 2019. Was recommended 5 year f/u. Discuss can put referral in then ----- SEXUAL HEALTH: Hepc C: Neg 07/26, recheck prn ----- : N o plans for future in next 12 months ----- METABOLIC: - L ipid screening: U TD A SCVD 3.2% - D M screening: DUE ----- SUBSTANCE USE: - T obacco use: D enies - Alcohol use: Admits R gustavo, o nce every couple months - Illicit drug use: Denies ----- FOLLOW UP: - Annually Ordered: Hemoglobin A1c 3. O besity Chronic, uncontrolled. Current BMI: 38. Reports exercising 6 days a week with BODY program as well as making dietary changes with cutting down on meal sizes and eating leaner foods. - Order a1c - F/u results then place prior auth for GLP1 - Goals of weight loss 5-7% - Have f/u 30 days for med f/u after starting GLP1 4. S welling of hand Chronic, worsening, uncontrolled. Hx of bilateral h and swelling, pain, with prominent nodules noted at DIP joints on the right as well as the left hand. No family hx of autoimmune conditions, suspect RA. - Order ESR, MARGIE, RF, anti-ccp - F/u results and consider rheumatology referral Ordered: MARGIE Screen Panel ESR [employer]oplus Rheumatoid Factor, Quantitative Orders: hydroCHLOROthiazide(hydroCHLOROthi azide 25 mg oral tablet), 1 tab(s), Oral, Daily, for blood pressure, # 90 tab(s), 3 total refill(s), Maintenance, Pharmacy: [facility] [Not filled] losartan(losartan 50 mg oral tablet), 1 tab(s), Oral, Daily, for blood pressure, # 90 tab(s), 3 total refill(s), Maintenance, Pharmacy: [facility] [Not filled] Capt Demian Coleman MD Linter Operator, PGY-[address] [facility], [place], [place] Addendum by EVERTON TINSLEY MD on December 15, 2024 17:09:51 CDT On the day of encounter, I was available for discussion with the resident physician. Case was discussed with me in the Teach Room. I agree with the assessment and plan of care as documented above with any exceptions/additions noted below if necessary. All labs/rads/consults to be followed by the ordering provider. DO Jeffrey Duarte [facility] Family Medicine Physician Extracted from:Title: COLLEGE COUNSELOR Office Clinic Note Author: CAMILO SANTIAGO DO Date: 11/11/24 1. 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 VS show elevated BP, did not take HCTZ today. PE benign. Patient was provided with counseling on CAROLINE and treatment of menopausal symptoms including lowest dose estrogen + progesterone (retained uterus) for endometrial protection f or shortest duration to manage vasomotor symptoms. She has no contraindications to starting HRT. 10 year ASCVD risk: 3.5%? We discussed the primary goal of HRT with ET is to relieve the vasomotor symptoms of hot flashes and night sweats. We discussed other symptoms of menopause which respond to HRT include mood irritability, joint pain, and sleep disturbances. R esults of the WHI and risks specifically there is an?increased risk of VTE/PE, however, the absolute risk is low, this was primarily demonstrated with medroxyprogesterone and not micronized progesterones. We reviewed various routes of medication including cream/gel, spray, transdermal patches, and oral medications. I reviewed the patient's m edical history and recent labs. Her current ASCVD risk is 1 - 4.9% (low). T here are no contraindications (hypertriglyceridemia, active gallbladder disease, known thrombophilias, or personal history of venous thromboembolism [VTE], breast, uterine or ovarian cancer). We reviewed the principle of the lowest effective dose for the shortest duration, and patient is amenable to this plan. She desires to proceed with o ral pills. #Well Woman Exam: - Pap UTD - D eferred G C/CT - Breast exam deferred n o complaints, due for mammogram - ordered - No concerns of sexual dysfunction or IPV - Patient is u p to date on immunizations; - Preventive counseling: diet and exercise reviewed - Preventive labs ordered: Vitamin D, TSH, HgBA1c, Lipid panel, CBC, CMP Bladder diary provided, AUGS CAROLINE handouts provided. Recommend follow-up in 1-2 weeks for CAROLINE evaluation. All questions answered. 2. E ssential hypertension elevated BP noted. Not taking HCTZ - Rx ordered for 30 days Patient to follow-up with PCM for continued management 3. M enopausal and female climacteric states as above 4. U nspecified urinary incontinence as above Orders: conjugated estrogens(conjugated estrogens 0.3 mg oral tablet), 1 tab(s), Oral, Daily, # 90 tab(s), 3 total refill(s), Maintenance, Pharmacy: [facility] [Not filled] hydroCHLOROthiazide(hydroCHLOROthi azide 25 mg oral tablet), 1 tab(s), Oral, Daily, for blood pressure, # 30 tab(s), 0 total refill(s), Maintenance, Pharmacy: [facility] [Not filled] progesterone(progesterone 200 mg oral capsule), 1 cap(s), Oral, Daily, take 1 pill orally 12 days out of the month while on estrogen, X 12 days, # 12 cap(s), 3 total refill(s), Acute, Pharmacy: [facility] [Not filled] CBC w/ Diff Hemoglobin A1c Lipid Panel Thyroid Stimulating Hormone Vitamin D 25 Hydroxy Level MG Mammo Navdeep Screening Bilateral Extracted from:Title: COLLEGE COUNSELOR virtual; LLQ pain Author: ALISHA SHIRLEY NP Date: 12/06/23 1. L LQ pain discussed possible adhesions with multiple surgeries, discussed possible GI or MS source; pt desires to observe with nl left ovary 2. O ther specified abnormal findings of blood chemistry low fat/low chol diet, no more than 25% total calories from fat, decrease carbs to decrease TG; repeat 1yr fasting 3. E ssential hypertension enc to monitor home BP and f/u with PCM if >140/90 Alisha Shirley [facility] Extracted from:Title: COLLEGE COUNSELOR WWE/pap/LLQ pain Author: ALISHA SHIRLEY NP Date: 11/19/23 1. E ncounter for gynecological examination (general) (routine) with abnormal findings Over 50% of m inute visit spent face to face with patient on education, reviewing history, and developing plan of care. Continue monthly BSE and yearly well woman exams. Return to clinic in 1 year. Exercise: 30 minutes of moderate exercise 5 days a week including cardio and strength training is recommended for a healthy lifestyle. T his should be in addition to your normal daily work/routine. If you are trying to lose weight more exercise along with a healthy diet is recommended. Supplements/Vitamins: If you are not following, or able to follow a well-balanced diet indicated below due to personal or medical reasons, it is recommended you take a m ultivitamin. This is especially important if you are trying to get as w omen need additional folic acid before and during (400-1000 micrograms per day). Daily calcium intake should be around 1200 mg per day w hich is 120% of the recommended daily allowance if looking at food labels.? W e recommend V itamin D3 2,000-3,000 international units a day i f you have not already been identified with an insufficiency or deficiency. Nutrition: A healthy diet with protein, vegetables, fruits, grains, and dairy is advised. More information including example serving sizes can be found at h ttps://www.[employer] Medical[employer].gov/.&#16 0; T hese amounts are appropriate for individuals who get less than 30 minutes per day of moderate physical activity, beyond normal daily activities. Those who are more physically active may be able to consume more while staying within calorie needs. Ordered: CT Bone Density Axial Skeleton MG Mammo Navdeep Screening Bilateral 2. E ncounter for screening for malignant neoplasm of cervix co test 5yrs if nl Ordered: AP Cytology COLLEGE COUNSELOR HPV High Risk (16/18/Other) 3. F lushing states tolerable even after stopping paxil Ordered: TSH w/ Reflex FT4 and Total T3 4. L LQ pain random, intermittent; to schedule virtual appt with me for 2-3days after US appt Ordered: US Pelvis w/ Transvag non-OB Complete 5. O ther specified abnormal findings of blood chemistry low fat/low chol diet, no more than 25% total calories from fat, Ordered: Lipid Panel 6. E ssential hypertension elevated BP today; states occ monitors at home; took meds last night; to monitor at home for next 1-2wks and f/u with PCM if elevated 7. O besity increase exercise, decrease calories to decrease wt/BMI; advised healthy lifestyle, namely whole food plant based diet w/ regular exercise. Advise nutrition tj/diary to track energy intake vs expenditure f/u prn PVUA. 8. B MT 36.0 to 36.9 Alisha Shirley [facility] SKEIN MERCERIZING MACHINE OPERATOR [place], [facility] Extracted from:Title: Family medicine: Medications Author: ESDRAS WILSON MD Date: 09/06/23 1. E ssential hypertension BP 141/82, goal <140/80 2/2 adults < 60 per jnc8 Continue L osartan 50 Continue HCTZ 25mg L ab results December 2021: Microalbumin below threshold, BMP: Cr: 0.7 ASCVD 2.6% no statin recommended at this time Orders: hydroCHLOROthiazide(hydroCHLOROthi azide 25 mg oral tablet), 1 tab(s), Oral, Daily, for blood pressure, # 90 tab(s), 3 total refill(s), Maintenance, 1 tab(s) Oral Daily,x90 days,Instr:for blood pressure, Pharmacy: [facility] [Not filled] losartan(losartan 50 mg oral tablet), 1 tab(s), Oral, Daily, for blood pressure, # 90 tab(s), 3 total refill(s), Maintenance, 1 tab(s) Oral Daily,x90 days,Instr:for blood pressure, Pharmacy: [facility] [Not filled] Capt Esdras Wilson MD Linter Operator P GY-2 [place] Staffed By: Janessa Addendum by KIMBERLY RIDDLE MD on September 14, 2023 14:57:28 MORNING SHOW HOST On the date of this encounter, I was immediately available to assist the resident in the care of this patient and have reviewed and agree with the residents findings and plan of care. Lt Col Kimberly Riddle MD Family Medicine Physician [facility] [place], [place] Extracted from:Title: SPORTS MED: Medial Meniscus Tear Author: MEDINA MORALES DO Date: 08/13/23 1. A cute meniscal tear, medial, posterior horn 53 yo F with acute on chronic posterior horn medial meniscal tear with extrusion, unrelieved with conservative measures. Desires surgical consultation. - Educated to continue home PT - Trial use of brace for MCL partial tear - Meloxicam once daily, dose with dinner to allow maximal benefit nightly - Ortho consult placed - Follow-up PRN. Can consider injection therapy, patient declined today. Ordered: Referral Request 2.0 2. P opliteal cyst Chronic. Stable. Consider aspiration in the future if desired by patient. Ordered: Referral Request 2.0 Orders: meloxicam(meloxicam 15 mg oral tablet), 1 tab(s), Oral, Daily, # 90 tab(s), 0 total refill(s), Maintenance, 1 tab(s) Oral Daily, Pharmacy: [facility] [Not filled] //SIGNED// Maj Medina Morales-DO Natan, CAQSM Sports/Family Medicine Faculty Physician [address] [place] [address], [facility] JUAN PABLO [place] Extracted from:Title: Ambulatory Patient Education Author: MEDINA MORALES DO Date: 08/13/23 Orthopedics Knee Exercises Ask your health care provider which exercises are safe for you. Do exercises exactly as told by your health care provider and adjust them as directed. It is normal to feel mild stretching, pulling, tightness, or discomfort as you do these exercises. Stop right away if you feel sudden pain or your pain gets worse. Do not begin these exercises until told by your health care provider. Stretching and zkubl-ur-khcdkc exercises These exercises warm up your muscles and joints and improve the movement and flexibility of your knee. These exercises also help to relieve pain and swelling. Knee extension, prone 1. Lie on your abdomen (prone position) on a bed. 2. Place your left / right knee just beyond the edge of the surface so your knee is not on the bed. You can put a towel under your left / right thigh just above your kneecap for comfort. 3. Relax your leg muscles and allow gravity to straighten your knee (extension). You should feel a stretch behind your left / right knee. 4. Hold this position for seconds. 5. Scoot up so your knee is supported between repetitions. Repeat times. Complete this exercise times a day. Knee flexion, active 1. Lie on your back with both legs straight. If this causes back discomfort, bend your left / right knee so your foot is flat on the floor. 2. Slowly slide your left / right heel back toward your buttocks. Stop when you feel a gentle stretch in the front of your knee or thigh (flexion). 3. Hold this position for seconds. 4. Slowly slide your left / right heel back to the starting position. Repeat times. Complete this exercise times a day. Quadriceps stretch, prone 1. Lie on your abdomen on a firm surface, such as a bed or padded floor. 2. Bend your left / right knee and hold your ankle. If you cannot reach your ankle or pant leg, loop a belt around your foot and grab the belt instead. 3. Gently pull your heel toward your buttocks. Your knee should not slide out to the side. You should feel a stretch in the front of your thigh and knee (quadriceps). 4. Hold this position for seconds. Repeat times. Complete this exercise times a day. Hamstring, supine 1. Lie on your back (supine position). 2. Loop a belt or towel over the ball of your left / right foot. The ball of your foot is on the walking surface, right under your toes. 3. Straighten your left / right knee and slowly pull on the belt to raise your leg until you feel a gentle stretch behind your knee (hamstring). Do not let your knee bend while you do this. Keep your other leg flat on the floor. 4. Hold this position for seconds. Repeat times. Complete this exercise times a day. Strengthening exercises These exercises build strength and endurance in your knee. Endurance is the ability to use your muscles for a long time, even after they get tired. Quadriceps, isometric This exercise stretches the muscles in front of your thigh (quadriceps) without moving your knee joint (isometric). 1. Lie on your back with your left / right leg extended and your other knee bent. Put a rolled towel or small pillow under your knee if told by your health care provider. 2. Slowly tense the muscles in the front of your left / right thigh. You should see your kneecap slide up toward your hip or see increased dimpling just above the knee. This motion will push the back of the knee toward the floor. 3. For seconds, hold the muscle as tight as you can without increasing your pain. 4. Relax the muscles slowly and completely. Repeat times. Complete this exercise times a day. Straight leg raises This exercise stretches the muscles in front of your thigh (quadriceps) and the muscles that move your hips (hip flexors). 1. Lie on your back with your left / right leg extended and your other knee bent. 2. Tense the muscles in the front of your left / right thigh. You should see your kneecap slide up or see increased dimpling just above the knee. Your thigh may even shake a bit. 3. Keep these muscles tight as you raise your leg 4 6 inches (10 1 5 cm) off the floor. Do not let your knee bend. 4. Hold this position for seconds. 5. Keep these muscles tense as you lower your leg. 6. Relax your muscles slowly and completely after each repetition. Repeat times. Complete this exercise times a day. Hamstring, isometric 1. Lie on your back on a firm surface. 2. Bend your left / right knee about degrees. 3. Dig your left / right heel into the surface as if you are trying to pull it toward your buttocks. Tighten the muscles in the back of your thighs (hamstring) to dig as hard as you can without increasing any pain. 4. Hold this position for seconds. 5. Release the tension gradually and allow your muscles to relax completely for seconds after each repetition. Repeat times. Complete this exercise times a day. Hamstring curls If told by your health care provider, do this exercise while wearing ankle weights. Begin with lb weights. Then increase the weight by 1 lb (0.5 kg) increments. Do not wear ankle weights that are more than lb. 1. Lie on your abdomen with your legs straight. 2. Bend your left / right knee as far as you can without feeling pain. Keep your hips flat against the floor. 3. Hold this position for seconds. 4. Slowly lower your leg to the starting position. Repeat times. Complete this exercise times a day. Squats This exercise strengthens the muscles in front of your thigh and knee (quadriceps). 1. rn visiting front of a table, with your feet and knees pointing straight ahead. You may rest your hands on the table for balance but not for support. 2. Slowly bend your knees and lower your hips like you are going to sit in a chair. Keep your weight over your heels, not over your toes. Keep your lower legs upright so they are parallel with the table legs. Do not let your hips go lower than your knees. Do not bend lower than told by your health care provider. If your knee pain increases, do not bend as low. 3. Hold the squat position for seconds. 4. Slowly push with your legs to return to standing. Do not use your hands to pull yourself to standing. Repeat times. Complete this exercise times a day. Wall slides This exercise strengthens the muscles in front of your thigh and knee (quadriceps). 1. Lean your back against a smooth wall or door, and walk your feet out 18 2 4 inches (46?61 cm) from it. 2. Place your feet hip-width apart. 3. Slowly slide down the wall or door until your knees bend degrees. Keep your knees over your heels, not over your toes. Keep your knees in line with your hips. 4. Hold this position for seconds. Repeat times. Complete this exercise times a day. Straight leg raises This exercise strengthens the muscles that rotate the leg at the hip and move it away from your body (hip abductors). 1. Lie on your side with your left / right leg in the top position. Lie so your head, shoulder, knee, and hip line up. You may bend your bottom knee to help you keep your balance. 2. Roll your hips slightly forward so your hips are stacked directly over each other and your left / right knee is facing forward. 3. Leading with your heel, lift your top leg 4 6 inches (10 1 5 cm). You should feel the muscles in your outer hip lifting. Do not let your foot drift forward. Do not let your knee roll toward the ceiling. 4. Hold this position for seconds. 5. Slowly return your leg to the starting position. 6. Let your muscles relax completely after each repetition. Repeat times. Complete this exercise times a day. Straight leg raises This exercise stretches the muscles that move your hips away from the front of the pelvis (hip extensors). 1. Lie on your abdomen on a firm surface. You can put a pillow under your hips if that is more comfortable. 2. Tense the muscles in your buttocks and lift your left / right leg about 4 6 inches (10?15 cm). Keep your knee straight as you lift your leg. 3. Hold this position for seconds. 4. Slowly lower your leg to the starting position. 5. Let your leg relax completely after each repetition. Repeat times. Complete this exercise times a day. This information is not intended to replace advice given to you by your health care provider. Make sure you discuss any questions you have with your health care provider. Document Revised: 07/15/2019 Document Reviewed: 07/15/2019 [employer] Patient Education 2021 [employer]. Extracted from:Title: Family Medicine - Left Knee/Calf Pain Author: MARY JO WILHELM DO Date: 07/18/23 1. L eft knee pain 53 year old female with known OA of the left knee presenting with pain rapidly worsening over the past 3 weeks. Differential includes meniscal injury, OA, ACL/PCL tear, hip OA with referred pain to the knee. History negative for injury. Positive Mary's sign on exam. Meniscal injury seems to be most likely etiology of symptoms. -MRI of the left knee for further evaluation -If meniscal injury present, can consider orthopedics referral -Weightbearing x-rays from 12/2022 reviewed -Patient advised to call sports medicine clinic to schedule follow up evaluation -Return precautions discussed Ordered: US Lower Ext Venous Duplex Left Referral Request 2.0 2. P ain of left calf Differential includes referred pain from the knee, DVT, muscle strain. History not concerning for malignancy, clotting disorder, recent surgery. Recent flight to [place]. N o signs or symptoms concerning for PE. Patient strength trains daily, so muscle strain cannot be excluded. -DVT LLE to rule out DVT -Return precautions discussed in depth -If DVT present, consider treatment with DOAC Ordered: US Lower Ext Venous Duplex Left Referral Request 2.0 Mary Jo Wilhelm DO Linter Operator, PGY-2 Geoff JONES Addendum by ENMA BAIN DO on July 18, 2023 11:37:37 CDT I certify that I was present for case discussion in the Family Medicine preceptor room at the time of this encounter. I have reviewed the note and agree with the findings, assessment, and plan except as I have documented below. Follow up as listed. All labs/imaging/consults to be followed by the ordering provider. Enma Bain, [facility], [facility], Staff Physician Extracted from:Title: Family Medicine - Left knee pain Author: WARREN MIRZA DO Date: 05/25/23 1. L eft knee pain Acute. Mild improvement from initial pain. Will refer pt to Sports Medicine for further evaluation, possible hyaluronic acid injection. Suspect acute flare of OA. Advised pt to continue icing and elevating daily, use of NSAIDs for analgesia. Pt verbalized understanding and agrees with the plan. Warren Mirza DO, [facility], [facility], Linter Operator [phone] , Geoff JONES Addendum by PASTORA HERNADEZ MD on May 25, 2023 15:45:02 CDT I was present and available in the Family Medicine Clinic to discuss this patient's care for the duration of the appointment. I agree with the residents assessment and plan as document with the following addendum: None. Pastora Hernadez MD. Family Medicine Faculty. 06/01/2025 [id number] [facility] Functional Status Combined list of recent functional and cognitive assessments recorded at [employer] and [employer] Affairs (VA).VA Functional [place] Measurement (FIM) Scale: 1 = Total Assistance (Subject = 0% +), 2 = Maximal Assistance (Subject = 25% +), 3 = Moderate Assistance (Subject = 50% +), 4 = Minimal Assistance (Subject = 75% +), 5 = Supervision, 6 = Modified [place] (Device), 7 = Complete [place] (Timely, Safely). Assessment Date/Time Source Assessment Type Assessment Skill Assessment Score Assessment Details No data available for this section
--- OUTSIDE RECORDS SUMMARY | 2025-06-01 10:45 | XMS_ITS | Clinical Summary ---
Author Organization [facility] Administrative Offices Address [address] [place] [id number] Care Team Providers Care Radioactivity Technician Name Role Phone Unavailable Primary Care Provider Unavailabl e Social History Tobacco Use Types Packs/Day Years Used Date Smoking Tobacco: Never Assessed Comments Unknown Sex and Gender Information Value Date Recorded Sex Assigned at Not on file Legal Sex Female 10:41 PM CDT Gender Identity Not on file Sexual Orientation Not on file Plan of Treatment Health Maintenance Due Date Last Done Comments DTAP/TDAP/TD VACCINES (1 - Tdap) 1989 HEPATITIS B VACCINES (1 of 3 - 19+ 3-dose series) 05/10 HPV/Cotest (21-29) 1991 CERVICAL CANCER SCREENING 2000 HPV/Cotest (30-65) 2000 PAP SMEAR 2000 BREAST CANCER SCREENING 2010 COLORECTAL SCREENING 2015 Colorectal Cancer Screening 2015 FIT-DNA Q 3 years 2015 FIT/FOBT Q 1 year 2015 Flex Sig/CT Colonography Q 5 years 2015 ZOSTER VACCINE (1 of 2) 2020 INFLUENZA VACCINE (#1) 2025 Insurance [facility]
--- OUTSIDE RECORDS SUMMARY | 2025-06-01 10:45 | XMS_ITS | Clinical Summary ---
Author Organization [facility] Medical Office Building B Address [address] [place] [address] Care Team Providers Care Scientist Immunology Name Role Phone [facility] Primary Care Provider [phone] Allergies No known active allergies Medications cholecalciferol (VITAMIN D-3) 2000 unit tablet 11/24/2020 Active lisinopriL (PRINIVIL,ZESTR IL) 20 mg tablet Take 20 mg by mouth daily 04/23/2020 Active hydroCHLOROthia zide (HYDRODIURIL) 12.5 mg tablet Take 12.5 mg by mouth daily 04/23/2020 Active PARoxetine (PAXIL) 10 mg tablet Take 10 mg by mouth every morning Active losartan (COZAAR) 50 mg tablet 2 Unknown, Unknown, 1 Refill(s), 0 total refill(s), Soft Stop 04/30/2023 Active meloxicam (MOBIC) 15 mg tablet Take 1 tablet (15 mg total) by mouth daily 90 tablet 08/21/2023 Active Active Problems Problem Noted Date Diagnosed Date Allergic rhinitis 08/21/2023 Blood in urine 08/21/2023 Carpal tunnel syndrome 08/21/2023 Overview (08/21/2023): Outside Source Comment: continue ibuprofen prn. wear wrist splint day and night for 2 weeks then go to nightly wear. RTC no improvement in 1-2 months. continue ibuprofen prn. wear wrist splint day and night for 2 weeks then go to nightly wear. RTC no improvement in 1-2 months. Cough 08/21/2023 Overview (08/21/2023): Hx of acute bronchitis two months ago. Was treated w/ Z-pack. Now coughing daily, more at night and hard enough to cause vomiting. Worse when laying flat. Will get CXR negative for pathology. Medications as prescribed. F/U in 10 days if not feeling better. Do not crush Tessalon perles for risk of aspiration. Mucinex w/ plenty of fluids. Albuterol as needed. Take as demonstrated. 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 BP under control. Refilled. Outside Source Comment: No side effects. BP under control. Refilled. Impingement syndrome of shoulder region 08/21/20 23 Intermenstrual heavy bleeding 08/21/2023 Malaise 08/21/2023 Obesity 08/21/2023 Patellofemoral pain syndrome of left knee 2022 Right lower quadrant abdominal pain 08/21/2023 Overview (08/21/2023): Pt states abdominal pain is improving. Negative US and CT scan except for submucosal fibroid noted and some shotty mesenteric lymph nodes. Pt has normal WBC count, lytes, and is not . She denies urinary symptoms or vaginal discharge. Will watch and wait for pain to resolve. Motrin for pain TID. If worsening or develops fever, nausea, vomiting, etc. return immediately for re-evaluation in nearest E.C. Pt verbales understanding and agrees w/ POC. Sinusitis 08/21/2023 Subconjunctival hemorrhage of left eye Plantar fasciitis 08/21/2023 Synovitis of hip 08/21/2023 Throat pain 08/21/2023 Popliteal cyst 08/13/2023 Tear of medial meniscus of knee 08/13/2023 Encounter for screening colonoscopy 01/03/2021 Overview (01/03/2021): Added automatically from request for surgery [id number] Spinal stenosis, cervical region 03/20/2019 Plantar fascial fibromatosis 03/06/2019 Essential (primary) hypertension 01/14/2016 Unspecified abdominal pain 01/14/2016 Numbness of upper extremity 05/24/2015 Immunizations Immunization Administration Dates Next Due Influenza LAIV (Nasal) 08/12/2013 Influenza, Trivalent, IM (MDV) 07/08/2013 Leadjini (J&J) SARS-CoV-2 Vaccination 01/11/2021 Tdap 01/31/2018 ZOSTER Recombinant 06/15/2021,02/22/2021 Surgical History Surgery Date Site/Laterality Comments EPIDURAL INJECTION LUMBOSACRAL 01/28/2013 N/A Medical History Medical History Date Comments Hypertension Family History Medical History Relation Name Comments Arthritis Father Family history of arthritis - (Added by TW Conv) Arthritis Mother Family history of arthritis - (Added by TW Conv) Relation Name Status Comments Father Mother Social History Tobacco Use Types Packs/Day Years Used Date Smoking Tobacco: Never AUDIT-C Answer Date Recorded Q1: How often do you have a drink containing alc ohol? Never 03/08/2021 Average Number of Drinks Not on file 021 Frequency of Binge Drinking Not on file 10/2020 Comments Unknown Sex and Gender Information Value Date Recorded Sex Assigned at Not on file Legal Sex Female 10:22 AM LARD TUB WASHER Gender Identity Not on file Sexual Orientation Not on file Obstetrics History Last Filed Vital Signs Vital Sign Reading Time Taken Comments Blood Pressure 157/89 03/08/2021 9:57 AM CDT Pulse 59 03/08/2021 9:57 AM CDT Temperature 36.7 C (98 F) 03/08/2021 9:57 AM CDT Respiratory Rate 16 03/08/2021 9:57 AM CDT Oxygen Saturation 100% 03/08/2021 9:57 AM CDT Inhaled Oxygen Concentration - - Weight 95.2 kg (209 lb 14.4 oz) 08/21/2023 9:15 AM LARD TUB WASHER Height 162.6 cm (5' 4) 08/21/2023 9:15 AM LARD TUB WASHER Body Mass Index 36.03 08/21/2023 9:15 AM LARD TUB WASHER Plan of Treatment Health Maintenance Due Date Last Done Comments Breast Cancer Screening-Mammogram 1970 Cervical Cancer Screening 1970 Depression Screening 1970 Hepatitis C Screening 1970 Hepatitis B Screening 1988 Regular Well Visit/Exam 18-64 1988 Covid-19 Vaccine (2 - 2023-2 5 season) 2024 01/11/2021 Influenza Vaccine (#1) 2025 3, 07/08/2013 DTaP/Tdap/Td Vaccine (2 - Td or Tdap) 02/01/2028 01/31/2018 Colon Cancer Screening-Colonoscopy 03/08/2031 03/08/2021 Zoster Vaccine Completed 06/15/2021, 02/22/2021 Pneumococcal vaccine <65 Aged Out No longer eligible based on patient's age to complete this topic Procedures Procedure Name Priority Date/Time Associated Diagnosis Comments COLONOSCOPY 03/08/2021 7:55 AM CDT from Last 3 Months or Most Recently Relevant to Health Maintenance Results * COLONOSCOPY (03/08/2021 7:55 AM CDT) Anatomical Region Laterality Modality Other Narrative Procedure Note Argenis Bueno MD - 03/08/2021 7:55 AM CDT [facility] Patient Name: Nia Mccullough Procedure Date: 03/08/2021 7:55 AM Date of : 1970 Admit Type: Outpatient Age: 50 Gender: Female Attending MD: Argenis Bueno M.D. Room: [facility] ENDOSCOPY ROOM 1 Note Status: Finalized Patient Profile: This is a 50 year old female. No family history of colon cancer. Screening colonoscopy. No specific GI complaint. Procedure: Colonoscopy Indications: Screening for colorectal malignant neoplasm, Thisis the patient's first colonoscopy Referring MD: [facility] [place] Providers: Argenis Bueno M.D. Impression: - The entire examined colon is normal. - Internal hemorrhoids. - No specimens collected. Recommendation: - Repeat colonoscopy in 10 years for screening purposes. - Continue present medications. Medicines: Monitored Anesthesia Care Complications: No immediate complications. Estimated Blood Loss: Estimated blood loss: none. Procedure: Pre-Anesthesia Assessment: - Prior to the procedure, a History and Physicalwas performed, and patient medications and allergieswere reviewed. The patient's tolerance of previous anesthesia was also reviewed. The risks andbenefits of the procedure and the sedation options and risks were discussed with the patient. All questions were answered, and informed consent was obtained. Prior Anticoagulants: The patient has taken no previous anticoagulant or antiplatelet agents. ASA Grade Assessment: II - A patient with mild systemicdisease. After reviewing the risks and benefits, the patient was deemed in satisfactory condition to undergo the procedure. The benefits, risks and alternatives of theprocedure and sedation were discussed and informed consentwas obtained. All questions were answered. Please referto the signed informed consent document in the medical record. The bowel preparation used was Miralax via split dose instruction. The bowel preparation usedwas bisacodyl tablets via split dose instruction. Bowel prep was administered using a split dose. The scope was passed under direct vision. The Pediatric Colonoscope PCF-H190L [id number] was introducedthrough the anus and advanced to the the cecum, identifiedby appendiceal orifice and ileocecal valve. Thequality of the bowel preparation was good. Findings: The perianal and digital rectal examinations were normal. The cecum appeared normal. The colon (entire examined portion) appeared normal. No polyps and no mass lesions noted. Single medium-sized diverticulum noted in the descending colon. Internal hemorrhoids were found during retroflexion. The hemorrhoids were small. Electronically signed by Argenis Bueno M.D. Argenis Bueno M.D. 03/08/2021 9:38:02 AM Number of Addenda: 0 Note Initiated On: 03/08/2021 7:55 AM Procedure Code(s): --- Professional --- 16152, Colonoscopy, flexible; diagnostic, including collection of specimen(s) by brushing or washing, when performed (separateprocedure) Diagnosis Code(s): --- Professional --- Z12.11, Encounter for screening for malignant neoplasm of colon K64.8, Other hemorrhoids CPT copyright 2019 [employer]. All rights reserved. The codes documented in this report are preliminary and upon certified coder reviewmay be revised to meet current compliance requirements. Recognized by the [employer] for promoting quality in endoscopy Argenis Bueno MD ENDOSCOPY PROCEDURES Final Result from Last 3 Months or Most Recently Relevant to Health Maintenance Insurance [facility] CLAIMS [facility] PRIME Advance Directives For more information, please contact: [phone] * Full Code (Latest Code Status on File) Date Activated Date Inactivated Comments 03/08/2021 8:22 AM 03/08/2021 2:10 PM Care Teams Scientist Immunology Relationship Specialty Start Date End Date [facility] [address] [place] [address] PCP - General 02/22/21
== END 2025-06-01 09:57 | disposition home or self-care (01) ==
PROVIDERS: Visit Provider Nurse Practitioner Adult Health
DX: M47.812 Spondylosis without myelopathy or radiculopathy, cervical region (principal)
CPT/HCPCS: 72040; 72125

== ENCOUNTER 2025-07-28 13:39 | Outpatient (CLI) | payer OTHER, SELFPAY ==
--- NOTE | ~2025-07-28 | XR_ITS ---
EXAMINATION: XR chest 2V, 07/28/2025 14:56 CDT HISTORY: M47.812 - Spondylosis without myelopathy or radiculopathy... COMPARISON: No comparisons available. Technique: 2 views obtained. Findings: The lungs are clear, no effusion. No pneumothorax. Heart is normal size. Mediastinal and hilar contours are within normal limits. Bony thorax no acute abnormality. Impression: No acute cardiopulmonary abnormality. Reviewed, dictated and finalized at location P. Impression: No acute cardiopulmonary abnormality.
--- NOTE | 2025-07-28 14:27 | ECG_ITS ---
Test Date: 2025-07-28 14:50:41 Measurements Intervals [place] Rate: 70 P: 17 DC: 135 QRS: 25 QRSD: 101 T: 11 QT: 396 QTc: 428 Interpretive Statements SINUS RHYTHM WITH SINUS ARRHYTHMIA POSSIBLE ANTERIOR MYOCARDIAL INFARCTION CONSIDER INFERIOR INFARCT, AGE INDETERMINATE BASELINE ARTIFACT- I, II, AVR, V4-V5 ABNORMAL ECG No previous ECG available for comparison Electronically Signed On 07-28-2025 14:56:27 CDT by Costa Mcdaniel D.O.
[2025-07-28 15:20] LABS: Hematocrit 42.8 % (37.0-47.0); Hemoglobin 14.0 g/dL (12.0-15.0); Mean Corpuscular HGB Conc 32.7 g/dl (32-36); Mean Corpuscular Hemoglobin 28.1 pg (26-34); Mean Corpuscular Volume 85.9 fl (80-100); Platelet Count Result 247 k/mm3 (150-375); Red Blood Count 4.98 M/mm3 (4.2-5.4); White Blood Count 6.2 K/mm3 (4.5-10.0)
[2025-07-28 15:21] LABS: Add Urine Microscopic? NO; Appearance Urine Clear (Clear); Glucose Urine UA Negative (Negative); Leukocyte Esterase Ur Negative LEU/UL (Negative); Nitrate Urine Negative (Negative); Specific Grav Ur 1.010 (1.001-1.035)
[2025-07-28 15:30] LABS: Anion Gap 7 mmol/L (4-12); Blood Urea Nitrogen 13 mg/dL (7-17); Calcium 8.9 mg/dL (8.4-10.2); Carbon Dioxide 30 mmol/L (22-30); Chloride 99 mmol/L (98-107); Estimated Glomerular Filt Rate > 60; Glucose 80 mg/dL (65-110); Potassium 3.3 mmol/L (3.4-5.0); Sodium 136 mmol/L (137-145)
[2025-07-28 15:31] LABS: INR 1.0; Partial Thromboplastin Time 25.7 Seconds (22.3-36.8); Prothrombin Time 12.9 Seconds (11.1-14.7)
--- OUTSIDE RECORDS SUMMARY | 2025-07-28 17:03 | XMS_ITS | Encounter Summary ---
Author Organization [facility] Address [address] [place] [address] Care Team Providers Care Tank Wagon Driver Name Role Phone None, Provider MD Primary Care Provider Unavaila ble Reason for Referral * Imaging (Routine) - Closed Specialty Diagnoses / Procedures Referred By Contac t Referred To Contact RADIOLOGY Diagnoses Breast cancer screening by mammogram Procedures MG SCREENING W Joey Lopez DO [address] [facility] [address] [place] [id number] Phone: tel: fax: Referral ID Status Reason Start Date Expiration Date Visits Re quested Visits Authorized [id number] Closed 01/21/2020 02/19/2021 1 1 Encounter Details Date Type Department Care Team (Late st Contact Info) Description 01/21/2020 Radiology [facility] Med/Surg 3rd Floor [place], [place] [id number] Joey Almodovar DO [address] [facility] [address] [place] [address] Social History Tobacco Use Types Packs/Day Years Used Date Smoking Tobacco: Never Assessed Comments Unknown Sex and Gender Information Value Date Recorded Sex Assigned at Female 11/27/2024 2:48 PM SHOE STITCHER Legal Sex Female 7:09 PM CDT Gender Identity Not on file Sexual Orientation Not on file documented as of this encounter Plan of Treatment Scheduled Orders Name Type Priority Associated Diagnoses Orde r Schedule MG SCREENING W LEXIS FERNANDA DIGI MAMMO Routine Breast cancer screening by mammogram Ordered: 01/21/2020 documented as of this encounter Visit Diagnoses Diagnosis Breast cancer screening by mammogram- Primary documented in this encounter Care Teams Tank Wagon Driver Relationship Specialty Start Date End Date None, Provider, PCP - General 04/27/20 documented as of this encounter
--- OUTSIDE RECORDS SUMMARY | 2025-07-28 17:03 | XMS_ITS | Clinical Summary ---
Author Organization [facility] Address [address] [place] [address] Care Team Providers Care Services Account Manager Name Role Phone [facility] [place], [place] Primary Care Provider [phone] Allergies No known active allergies Medications cholecalciferol [...] (01/03/2021): Added automatically from request for surgery [id number] Spinal stenosis, cervical region 03/20/2019 Plantar fascial fibromatosis 03/06/2019 Essential (primary) hypertension 01/14/2016 Unspecified abdominal pain 01/14/2016 Numbness of upper extremity 05/24/2015 Immunizations Immunization Administration Dates Next Due Influenza LAIV (Nasal) 08/12/2013 Influenza, Trivalent, IM (MDV) 07/08/2013 Snoox (J&J) SARS-CoV-2 Vaccination 01/11/2021 Tdap 01/31/2018 ZOSTER [...] on file 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 Gender Identity Not on file Sexual Orientation [...] (209 lb 14.4 oz) 08/21/2023 9:15 AM MOLD SHEET CLEANER Height 162.6 cm (5' 4) 08/21/2023 9:15 AM MOLD SHEET CLEANER Body Mass Index 36.03 08/21/2023 9:15 AM 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 Room: [facility] 1 Note Status: Finalized Patient Profile: This is a 50 year old female. No family history of colon cancer. Screening colonoscopy. No specific GI complaint. Procedure: Colonoscopy Indications: Screening for colorectal malignant neoplasm, Thisis the patient's first colonoscopy Referring MD: Family Brewer [place] Providers: Argenis Bueno M.D. Impression: - The [...] under direct vision. The Pediatric Colonoscope [id number]-H190L [id number] was introducedthrough the anus and advanced to [...] 7:55 AM Procedure Code(s): --- Professional --- 45205, Colonoscopy, flexible; diagnostic, including collection of specimen(s) by brushing or washing, when performed (separateprocedure) Diagnosis Code(s): --- Professional --- Z12.11, Encounter for screening for malignant neoplasm of colon K64.8, Other hemorrhoids CPT copyright 2019 [employer]. All rights reserved. The codes documented in this report are preliminary and upon inclusion teacher reviewmay be revised to meet current compliance requirements. Recognized by the [place] [employer] for promoting quality in endoscopy Argenis Bueno MD ENDOSCOPY PROCEDURES Final Result from Last 3 Months or Most Recently Relevant to Health Maintenance Insurance [facility] Advance Directives For more information, please contact: [phone] * Full Code (Latest Code Status on File) Date Activated Date Inactivated Comments 03/08/2021 8:22 AM 03/08/2021 2:10 PM Care Teams Services Account Manager Relationship Specialty Start Date End Date [facility] [place], [place] [address] [place] [address] PCP - General 02/22/21
--- OUTSIDE RECORDS SUMMARY | 2025-07-28 17:04 | XMS_ITS | Clinical Summary ---
Author Organization [facility] Address [facility] [place] [address] Care Team Providers Care Fiberglass Bonding Machine Tender Name Role Phone None, Provider MD Primary Care Provider Unavaila ble Medications hydroCHLOROthiaz claudia 12.5 MG tablet Take 12.5 mg by mouth daily. 04/23/2020 Active lisinopril 20 MG tablet Take 20 mg by mouth daily. 04/23/2020 Active PARoxetine (PAXIL) 10 MG tablet Take 10 mg by mouth every morning. Active gabapentin (NEURONTIN) 600 MG tablet Take 600 mg by mouth 3 (three) times daily. Active Family History Medical History Relation Comments Breast Cancer Maternal Aunt Relation Status Comments Maternal Aunt Alive Social History Tobacco Use Types Packs/Day Years Used Date Smoking Tobacco: Never Smokeless Tobacco: Never Alcohol Use Standard Drinks/Week Comments Yes 0 (1 standard drink = 0.6 oz pur e alcohol) social Education Answer Date Recorded What is the highest level of school you have completed or the highest degree you have received? Master's degree (e.g., MA, MS, Dilcia, MEd, [employer], MITZI) 05/02/2022 Comments No Sex and Gender Information Value Date Recorded Sex Assigned at Female 11/27/2024 2:48 PM FORESTRY PATROLMAN Legal Sex Female 7:09 PM CDT Gender Identity Not on file Sexual Orientation Not on file Last Filed Vital Signs Vital Sign Reading Time Taken Comments Blood Pressure 155/97 01/28/2025 11:57 AM CDT Pulse 58 01/28/2025 11:57 AM CDT Temperature 36.9 C (98.5 F) 01/28/2025 9:34 AM CDT Respiratory Rate 18 01/28/2025 11:57 AM CDT Oxygen Saturation 100% 01/28/2025 11:57 AM CDT Inhaled Oxygen Concentration - - Weight 95.7 kg (211 lb) 01/28/2025 9:34 AM CDT Height 162.6 cm (5' 4) 01/28/2025 9:34 AM CDT Body Mass Index 36.22 01/28/2025 9:34 AM CDT Plan of Treatment Health Maintenance Due Date Last Done Comments Cervical Cancer Screening Pa p Smear (Age 30 to 64) Every 3 Years 1970 Colorectal Cancer Screening Colonoscopy (10 Years) 1970 Annual Physical 1973 Hepatitis C 1988 Hepatitis B Vaccines (1 of 3 - 19+ 3-dose series) 1989 Cervical Cancer Screening Pa p with HPV Testing (Age 30 to 64) Every 5 Years 2000 Cervical Cancer Screening wi th HPV 2000 Pneumococcal Vaccine: 50+ Years (1 of 1 - PCV) 2020 COVID-19 Vaccine (2 - 2024-2 6 season) 2025 01/11/2021 Influenza Adult (#1) 2025 08/12/2013, 07/08/2013 Mammogram Screening 11/27/2026 11/27/2024 DTaP, Tdap and Td Vaccines ( 2 - Td or Tdap) 02/01/2028 01/31/2018 Zoster Vaccines Completed 06/15/2021, 02/22/2021 Hepatitis A Vaccines Aged Out No long er eligible based on patient's age to complete this topic Meningococcal B Vaccine Aged Out No l onger eligible based on patient's age to complete this topic Meningococcal Vaccine Aged Out No shady aleks eligible based on patient's age to complete this topic RSV Immunizations Under 20 Months Aged Out No longer eligible b ased on patient's age to complete this topic Procedures Procedure Name Priority Date/Time Associated Diagnosis Comments MG SCREENING W LEXIS FERNANDA DIGI Routine 11/27/2024 3:18 PM FORESTRY PATROLMAN Visit for screening mammogram from Last 3 Months or Most Recently Relevant to Health Maintenance Results * MG SCREENING W LEXIS FERNANDA DIGI (11/27/2024 3:18 PM FORESTRY PATROLMAN) Anatomical Region Laterality Modality Breast Bilateral Mammography 12/10/2024 8:31 AM FORESTRY PATROLMAN Impressions 12/10/2024 8:35 AM FORESTRY PATROLMAN IMPRESSION: No suspicious mammographic findings. Recommendation: 1. Routine Screening, Bilateral Assessment: ACR BI-RADS 1 - NEGATIVE Ordered By: CAMILO SANTIAGO Interpreted By: Angus Culver MD, 12/10/2024 8:31 AM Narrative 12/10/2024 8:35 AM FORESTRY PATROLMAN [facility] [address] [place] [address] Examination: Screening bilateral mammogram Exam Date: 11/27/2024 3:06 PM Clinical history: Routine screening. Family history of breast cancer in her aunt. Comparison: 12/03/2023, 05/19/2022 Technique: Digital screening mammography of both breasts was performed. Breast tomosynthesis acquisitions were obtained and reviewed. This study was read with the assistance of a computer-aided detection system. Tissue density: There are scattered areas of fibroglandular density. Findings: No suspicious masses, malignant appearing calcifications, skin thickening or other abnormalities are present. No significant change from the prior exam. Camilo Santiago DO MAMMO Final Result from Last 3 Months or Most Recently Relevant to Health Maintenance Insurance Care Teams Fiberglass Bonding Machine Tender Relationship Specialty Start Date End Date None, Provider, PCP - General 04/27/20
--- OUTSIDE RECORDS SUMMARY | 2025-07-28 17:04 | XMS_ITS | Clinical Summary ---
Author Organization [facility] Administrative Offices Address [address] [place] [id number] Care Team Providers Care Ear Pull Machine Operator Name Role Phone Unavailable Primary Care Provider [...] 2) 2020 INFLUENZA VACCINE (#1) 2025 Insurance [facility]
== END 2025-07-28 13:40 | disposition home or self-care (01) ==
LOC: ANHSURGERY 13:45
PROVIDERS: Visit Provider Neurological Surgery
DX: Z01.810 Encounter for preprocedural cardiovascular examination (principal); R94.31 Abnormal electrocardiogram [ECG] [EKG]; M47.812 Spondylosis without myelopathy or radiculopathy, cervical region; M50.323 Other cervical disc degeneration at C6-C7 level
CPT/HCPCS: 36415; 71046; 80048; 81003; 85027; 85610; 85730; 93005